=== PATIENT | female | born 1950 | race Two or more races ===

== ENCOUNTER 2024-04-17 00:22 | Inpatient (IN) | payer OTHER, MEDICAID ==
[~2024-04-17] VITALS: Ht 172.7 cm; Wt 54.1 kg
[2024-04-17] MEDS: levETIRAcetam 1000 mg/100ml 100 ML IV ONE (01:25)
[2024-04-17] MEDS: LORazepam 2MG/ML-1ML VIAL IV ONE (01:32)
[2024-04-17] MEDS: ONDANSETRON HCL 4 MG/2 ML VIAL IV ONE (01:32)
[2024-04-17 01:37] LABS: Basophils # (auto) 0 10 ^3/uL (0-0.2); Basophils % (auto) 0.2 % (0.0-2.0); Eosinophils # (auto) 0.2 10 ^3/uL (0-0.8); Eosinophils % (auto) 1.4 % (0.0-7.0); Hematocrit 40.9 % (36.0-46.0); Hemoglobin 13.9 g/dL (12.2-16.2); Lymphocytes % (auto) 7.5 % (10.0-50.0); Mean Corpuscular Hemoglobin 33.2 pg (28.0-32.0); Mean Corpuscular Hgb Conc. 33.9 g/dL (32.0-36.0); Monocytes # (auto) 0.7 10 ^3/uL (0-1.3); Monocytes % (auto) 5.7 % (0.0-12.0); Neutrophils # (auto) 11.1 10 ^3/uL (1.6-8.6); Neutrophils % (auto) 85.2 % (37.0-80.0); Red Blood Cells 4.18 10^6/uL (4.0-5.20); Red Cell Distribution Width 13.9 % (11.8-14.3); White Blood Cell 13.1 10^3/uL (4.4-10.8)
[2024-04-17 02:01] LABS: Alanine Aminotransferase 17 U/L (7-40); Albumin 4.3 g/dL (3.2-4.8); Alkaline Phosphatase 90 U/L (46-116); Anion Gap 12 (5-15); Aspartate Aminotransferase 23 U/L (13-40); BUN/Creatinine Ratio 31.4 (10.0-20.0); Blood Urea Nitrogen 22 mg/dL (9-23); Calcium 9.8 mg/dL (8.7-10.4); Carbon Dioxide 26 mmol/L (20-30); Chloride 106 mmol/L (98-107); Glucose 144 mg/dL (74-106); Potassium 3.8 mmol/L (3.5-5.1); Sodium 144 mmol/L (136-145)
[2024-04-17 02:02] LABS: Bilirubin, Total 0.7 mg/dL (0.2-1.0); Total Protein 6.9 g/dL (5.7-8.2)
[2024-04-17] MEDS: TETANUS-DIPTH-ACEL PERTUSSIS 0.5ML SYR Tdap IM ONE (02:14)
[2024-04-17 02:17] LABS: Urine Bacteria MOD /hpf (None Seen); Urine Blood 1+ /uL (Negative); Urine Clarity Clear (Clear); Urine Color Light-Yellow (Yellow); Urine Hyaline Cast FEW /lpf (0 - 2); Urine Protein, UAD 1+ (Negative); Urine Specific Gravity 1.015 (1.001-1.035); Urine Urobilinogen Normal (Negative); Urine WBC 8 /hpf (0 - 5)
[2024-04-17] MEDS: cefTRIAXone 1GM/50ML D5W 50 ML IV ONE (04:45)
[2024-04-17] MEDS ORDERED: DOCUSATE SOD 100 MG CAP PO PRN (05:15)
[2024-04-17] MEDS ORDERED: LORazepam 2MG/ML-1ML VIAL IV PRN (05:15)
[2024-04-17] MEDS ORDERED: MORPHINE SULFATE INJ 2 MG/ml SYRG IV PRN (06:00)
[2024-04-17] MEDS ORDERED: NITROGLYCERIN 0.4 MG SL TAB SL PRN (06:00)
[2024-04-17] MEDS: SODIUM CHLOR 0.9% PF (SALINE LOCK) 10ML VIAL/SYR IV SCH (06:06)
[2024-04-17 06:28] LABS: Basophils # (auto) 0.1 10 ^3/uL (0-0.2); Basophils % (auto) 0.6 % (0.0-2.0); Eosinophils # (auto) 0.1 10 ^3/uL (0-0.8); Eosinophils % (auto) 0.8 % (0.0-7.0); Hematocrit 41.3 % (36.0-46.0); Hemoglobin 14.1 g/dL (12.2-16.2); Lymphocytes # (auto) 1.3 10 ^3/uL (0.4-5.4); Lymphocytes % (auto) 10.8 % (10.0-50.0); Mean Corpuscular Hemoglobin 33.2 pg (28.0-32.0); Mean Corpuscular Hgb Conc. 34.1 g/dL (32.0-36.0); Mean Corpuscular Volume 97.3 fL (80.0-100.0); Monocytes # (auto) 0.7 10 ^3/uL (0-1.3); Monocytes % (auto) 5.6 % (0.0-12.0); Neutrophils # (auto) 9.8 10 ^3/uL (1.6-8.6); Neutrophils % (auto) 82.2 % (37.0-80.0); Nucleated Red Blood Cells % 0.1 %; Red Blood Cells 4.24 10^6/uL (4.0-5.20); Red Cell Distribution Width 13.3 % (11.8-14.3)
[2024-04-17 06:29] LABS: Alanine Aminotransferase 17 U/L (7-40); Albumin 4.1 g/dL (3.2-4.8); Alkaline Phosphatase 83 U/L (46-116); Anion Gap 6 (5-15); Aspartate Aminotransferase 34 U/L (13-40); BUN/Creatinine Ratio 24.6 (10.0-20.0); Bilirubin, Total 0.8 mg/dL (0.2-1.0); Blood Urea Nitrogen 16 mg/dL (9-23); Calcium 9.3 mg/dL (8.5-10.1); Carbon Dioxide 24 mmol/L (20-30); Chloride 109 mmol/L (98-107); Glucose 133 mg/dL (74-106); Potassium 3.7 mmol/L (3.5-5.1); Sodium 139 mmol/L (136-145); Total Protein 6.7 g/dL (5.7-8.2)
[2024-04-17] MEDS: FAMOTIDINE (10MG/ML) 2ML VL IV SCH (09:17)
[2024-04-17] MEDS: ASPirin 81 mg TAB PO SCH (09:18)
[2024-04-17] MEDS: HYDROcodone-ACET 5/325MG TAB PO PRN (09:20)
[2024-04-17] MEDS: levETIRAcetam 1000 mg/100ml 100 ML IV SCH (09:22)
[2024-04-17 12:51] VITALS: BP 117/70; PULSE 89; RESP 18; TEMP 97.8; O2SAT 93
[2024-04-17] MEDS: NICOTINE 14 MG/24HR TOPICAL PATCH TD ONE (13:45)
[2024-04-17] MEDS: LORazepam 2MG/ML-1ML VIAL IV PRN (15:00)
[2024-04-17 16:00] VITALS: BP 108/69; PULSE 96; RESP 18; TEMP 97.8; O2SAT 93
[2024-04-17 20:00] VITALS: PULSE 99
[2024-04-17 21:00] VITALS: BP 109/68; PULSE 94; RESP 18; TEMP 97.6; O2SAT 94
[2024-04-17] MEDS: ATORVASTATIN 20 MG TAB PO SCH (21:38)
[2024-04-17] MEDS: ACETAMINOPHEN 325 MG TAB PO PRN (21:38)
[2024-04-18] VITALS (9 sets, daily range): BP systolic 94–110; BP diastolic 52–72; PULSE 76–103; RESP 14–20; TEMP 97.6–98.3; O2SAT 93–95
[2024-04-18] MEDS: cefTRIAXone 1GM/50ML D5W 50 ML IV SCH (05:23)
[2024-04-18 06:29] LABS: Basophils # (auto) 0 10 ^3/uL (0-0.2); Basophils % (auto) 0.4 % (0.0-2.0); Eosinophils # (auto) 0.3 10 ^3/uL (0-0.8); Eosinophils % (auto) 3.8 % (0.0-7.0); Lymphocytes # (auto) 1.4 10 ^3/uL (0.4-5.4); Lymphocytes % (auto) 18.2 % (10.0-50.0); Mean Corpuscular Hemoglobin 33.7 pg (28.0-32.0); Mean Corpuscular Hgb Conc. 34.2 g/dL (32.0-36.0); Mean Corpuscular Volume 98.5 fL (80.0-100.0); Monocytes # (auto) 0.6 10 ^3/uL (0-1.3); Monocytes % (auto) 7.3 % (0.0-12.0); Neutrophils # (auto) 5.4 10 ^3/uL (1.6-8.6); Neutrophils % (auto) 70.3 % (37.0-80.0); Red Blood Cells 3.86 10^6/uL (4.0-5.20); Red Cell Distribution Width 13.3 % (11.8-14.3); White Blood Cell 7.7 10^3/uL (4.4-10.8)
[2024-04-18 06:51] LABS: Alanine Aminotransferase 14 U/L (7-40); Alkaline Phosphatase 78 U/L (46-116); Anion Gap 6 (5-15); Aspartate Aminotransferase 26 U/L (13-40); BUN/Creatinine Ratio 32.4 (10.0-20.0); Bilirubin, Total 0.8 mg/dL (0.2-1.0); Blood Urea Nitrogen 24 mg/dL (9-23); Calcium 9.4 mg/dL (8.5-10.1); Carbon Dioxide 25 mmol/L (20-30); Chloride 109 mmol/L (98-107); Glucose 110 mg/dL (74-106); Potassium 3.7 mmol/L (3.5-5.1); Sodium 140 mmol/L (136-145); Total Protein 6.1 g/dL (5.7-8.2)
[2024-04-18 09:29] LABS: Amphetamine Screen, Urine Neg (NEGATIVE); Barbiturate Scree,Urine Neg (NEGATIVE); Benzodiazephine Screen, Urine Neg (NEGATIVE); Cocaine Screen, Urine Neg (NEGATIVE); Opiate Scree,Urine Pos (NEGATIVE)
[2024-04-18 09:30] LABS: Cannabinoid Screen, Urine Neg (NEGATIVE); Phencyclidine Screen, Urine Neg (NEGATIVE)
[2024-04-18] MEDS: NICOTINE 14 MG/24HR TOPICAL PATCH TD SCH (09:55)
[2024-04-18] MEDS ORDERED: LISI2.5T47 PO (12:50)
[2024-04-18] MEDS ORDERED: ASCO500T11 PO (12:50)
[2024-04-18] MEDS ORDERED: OMEP20TA PO (12:50)
[2024-04-18] MEDS ORDERED: NITR0.4S29 SL (12:50)
[2024-04-18] MEDS ORDERED: SENN-58 PO (12:50)
[2024-04-18] MEDS ORDERED: DIPH-751 PO (12:50)
[2024-04-18] MEDS ORDERED: ASPI-498 OR (12:50)
[2024-04-18] MEDS ORDERED: ASPI81TA28 PO (12:50)
[2024-04-18] MEDS ORDERED: LEVO500T91 PO (12:50)
[2024-04-18] MEDS ORDERED: HYDR-4798 PO (12:50)
[2024-04-18] MEDS ORDERED: ATOR10TA52 PO (12:50)
[2024-04-18] MEDS ORDERED: LORA2TAB89 PO (12:59)
[2024-04-18] MEDS: ONDANSETRON HCL 4 MG/2 ML VIAL IV PRN (14:20)
[2024-04-18] MEDS ORDERED: LORazepam 2MG/ML-1ML VIAL IV PRN (20:30)
[2024-04-18 20:53] LABS: LDL Cholesterol 81 mg/dL (< 100); Triglycerides 104 mg/dL (< 150)
[2024-04-18 20:55] LABS: Cholesterol 160 mg/dL (< 200); HDL Cholesterol 67 mg/dL (40-59)
[2024-04-18] MEDS: FOLIC ACID 1 MG in D5W 5% 50 ML INJ SCH (21:30)
[2024-04-18] MEDS: THIAMINE 100mg/ml INJ (200mg/2ml VIAL) IV SCH (22:10)
[2024-04-18] MEDS: LORazepam 0.5 MG TAB PO PRN (22:42)
[2024-04-19] VITALS (8 sets, daily range): BP systolic 102–130; BP diastolic 58–81; PULSE 72–99; RESP 16–18; TEMP 97.7–98.1; O2SAT 92–98
[2024-04-19 07:13] LABS: Anion Gap 6 (5-15); Carbon Dioxide 24 mmol/L (20-30); Chloride 109 mmol/L (98-107); Potassium 4.1 mmol/L (3.5-5.1); Sodium 139 mmol/L (136-145)
[2024-04-19 07:14] LABS: Calcium 9.4 mg/dL (8.7-10.4)
[2024-04-19 07:19] LABS: BUN/Creatinine Ratio 34.4 (10.0-20.0); Blood Urea Nitrogen 22 mg/dL (9-23); Glucose 108 mg/dL (74-106)
[2024-04-20 05:00] VITALS: BP 132/74; PULSE 78; RESP 19; TEMP 97.7; O2SAT 93
[2024-04-20 08:00] VITALS: PULSE 72
[2024-04-20 08:15] VITALS: PULSE 88; RESP 20; O2SAT 96
[2024-04-20 09:00] VITALS: BP 138/81; PULSE 88; RESP 20; TEMP 97.7; O2SAT 96
[2024-04-20 13:00] VITALS: BP 140/86; PULSE 93; RESP 20; TEMP 97.5; O2SAT 95
== END 2024-04-20 17:07 | disposition hospice, home (50) | DRG 872 ==
LOC: ER 00:22 → EDBD 00:22 → EAST 05:55 → TELE 06:54 → TELE-EAST 12:30 → EAST 04-20 14:08
PROVIDERS: ADMIT Nurse Practitioner Family; ATTEND Internal Medicine
DX: A41.9 Sepsis, unspecified organism (principal); N39.0 Urinary tract infection, site not specified; Z68.1 Body mass index [BMI] 19.9 or less, adult; F10.139 Alcohol abuse with withdrawal, unspecified; G40.509 Epileptic seizures related to external causes, not intractable, without status epilepticus; E44.0 Moderate protein-calorie malnutrition; F17.200 Nicotine dependence, unspecified, uncomplicated; F41.9 Anxiety disorder, unspecified; I10 Essential (primary) hypertension; E78.00 Pure hypercholesterolemia, unspecified; Y90.9 Presence of alcohol in blood, level not specified; S00.81XA Abrasion of other part of head, initial encounter; W17.89XA Other fall from one level to another, initial encounter; Y93.89 Activity, other specified; Y92.89 Other specified places as the place of occurrence of the external cause; Y99.8 Other external cause status; Z86.73 Personal history of transient ischemic attack (TIA), and cerebral infarction without residual deficits; Z79.82 Long term (current) use of aspirin; Z79.899 Other long term (current) drug therapy; Z71.41 Alcohol abuse counseling and surveillance of alcoholic
CPT/HCPCS: 36415; 70450; 70486; 72125; 73130; 73560; 80048; 80053; 80061; 80307; 81001; 83880; 84484; 85025; 87086; 90471; 90715; 93005; 93306; 93886; 96365; 96367; 96375; 97110; 97116; 97163; 97530; G0378; J2405; J3490; J7060

== ENCOUNTER 2024-10-08 20:55 | Inpatient (IN) | payer OTHER, MEDICAID ==
[~2024-10-08] VITALS: Ht 162.6 cm; Wt 62.0 kg
[~2024-10-08 20:55] MED LIST: ASCO500T11 PO; ASPI-498 OR; ASPI81TA28 PO; ATOR10TA52 PO; DIPH-751 PO; HYDR-4798 PO; LEVO500T91 PO; LISI2.5T47 PO; LORA2TAB89 PO; NITR0.4S29 SL; OMEP20TA PO; SENN-58 PO
--- NOTE | 2024-10-08 21:34 | ED.PDOC ---
Altered Mental Status HPI Comments This 74-year-old female is a resident of an assisted living facility presents to the emergency room after having a witnessed grand mal seizure. Per report, the patient has been off her medications 1 day as a ran out. The caregivers were unable to provide a list of medications and, we are unsure what medication she is supposed to take. At baseline, the patient is A&O x1. She is unable to write any additional information. He has no other obvious signs or symptoms. No other palliative provocative factors. Modifying factor. Denies pain. Chief Complaint: ALOC Time Seen by MD: 21:34 Allergies: Coded Allergies: Naproxen (Verified Allergy, Unknown, 04/19/24) Home Meds Reported Medications Lorazepam (Ativan) 2 Mg Tab, 1 TAB PO QPM for ANXIETY, #30 TAB 04/18/24 Nitroglycerin (NTROSTAT SUBLINGUAL) 0.4 Mg Sl, 0.4 MG SL PRN, TAB *MAY REPEAT EVERY 5 MINUTES X 3 TOTAL IF NO RELIEF, INITIATE ANALGESIC THERAPY. NOTIFY PHYSICIAN *Do not crush. 04/18/24 Levofloxacin Hemihydrate (LEVOFLOXACIN) 500 Mg Tab, 1 TAB PO DAILY, #7 TAB 04/18/24 Ascorbic Acid (VITAMIN C TABLET) 500 Mg Tb, 1 TAB PO DAILY for SUPPLEMENT, #30 TAB 3 Refills 04/18/24 Aspirin (Aspirin Ec) 81 Mg Tab, 81 MG PO DAILY, TAB 04/18/24 Aspirin (ASPIRIN 81) 81 Mg Tab, 81 MG OR, TAB 04/18/24 Senna (Senokot) 8.6 Mg Tab, 1 TAB PO BID for CONSTIPATION, #40 TAB 04/18/24 Atorvastatin Calcium (ATORVASTATIN CALCIUM) 10 Mg Tab, 1 TAB PO DAILY, #30 TAB 5 Refills 04/18/24 Lisinopril (Lisinopril) 2.5 Mg Tab, 1 TAB PO DAILY for HTN, #30 TAB 5 Refills 04/18/24 Omeprazole (Gnp Omeprazole) 20 Mg Tab, 1 TAB PO DAILY, #90 TAB 1 Refill 04/18/24 Hydrocodone-Acetaminophen (Hydrocodone Bitartrate/AC 10-325 mg) 1 Tab Tab, 1 TAB PO for PAIN, TAB 04/18/24 Diphenhydramine Hcl (Banophen) 25 Mg Cap, 25 MG PO BID for ITCHING, CAP 04/18/24 Mode of Arrival: EMS Past Medical History PAST MEDICAL HISTORY: High Lipids, HTN, Seizures Surgical History: Denies all surgeries OIL FIELD PUMPER History: No Pertinent OIL FIELD PUMPER History Family History Family History: Unknown Social History Smoker: Non-Smoker Alcohol: Denies ETOH Use Drugs: Denies Drug Use Constitutional: reports: weakness EENTM: denies: eye redness, nose pain, throat swelling Respiratory: denies: cough, shortness of breath Cardiovascular: denies: chest pain, dizzy spells Gastrointestinal: reports: abdominal pain; denies: diarrhea Genitourinary: reports: burning, dysuria Neurological: reports: pre-existing deficit Musculoskeletal: denies: muscle stiffness Psychiatric: reports: others (Dementia) Unable to Obtain due to: Altered Mental Status, Dementia Physical Exam General Appearance: Mild Distress HEENT: Normal ENT Inspection Neck: Full Range of Motion Respiratory: Lungs Clear, No Accessory Muscle Use, No Respiratory Distress Cardiovascular: Regular Rate/Rhythm Breast Exam: Deferred Gastrointestinal: Other (Mild suprapubic tenderness palpation. No rebound or guarding. Normoactive bowel sounds throughout.) Genitalia: Deferred Pelvic: Deferred Rectal: Deferred Extremities: No calf tenderness, No pedal edema Neurologic: companion caregiver II-XII nml as Tested, Disoriented, Normal Mood Cerebellar Function: NOT DONE Reflexes: NOT DONE Skin: None Lymphatic: NOT DONE Was a procedure done? Was a procedure done?: No Differential Diagnosis (ALOC) Differential Diagnosis: Dehydration, Hypoglycemia, DKA, Encephalopathy, Meningitis, Sepsis, Hypoxemia, Seizure, Closed Head Injury, CVA, Drug Overdose, ETOH Intoxication X-Ray, Labs, Meds, VS Vital Signs Date Time Temp Pulse Resp B/P (MAP) Pulse Ox O2 Delivery O2 Flow Rate FiO2 10/08/24 20:58 97.8 102 20 133/100 (111) 96 Lab Test 10/08/24 22:01 Range/Units White Blood Count 9.6 4.4-10.8 10^3/uL Red Blood Count 4.34 4.0-5.20 10^6/uL Hemoglobin 14.4 12.2-16.2 g/dL Hematocrit 43.1 36.0-46.0 % Mean Corpuscular Volume 99.2 80.0-100.0 fL Mean Corpuscular Hemoglobin 33.3 H 28.0-32.0 pg Mean Corpuscular Hemoglobin Concent 33.5 32.0-36.0 g/dL Red Cell Distribution Width 14.2 11.8-14.3 % Platelet Count 245 140-450 10^3/uL Mean Platelet Volume 8.0 6.9-10.8 fL Neutrophils (%) (Auto) 89.7 H 37.0-80.0 % Lymphocytes (%) (Auto) 5.4 L 10.0-50.0 % Monocytes (%) (Auto) 4.5 0.0-12.0 % Eosinophils (%) (Auto) 0.2 0.0-7.0 % Basophils (%) (Auto) 0.2 0.0-2.0 % Neutrophils # (Auto) 8.6 1.6-8.6 10 ^3/uL Lymphocytes # (Auto) 0.5 0.4-5.4 10 ^3/uL Monocytes # (Auto) 0.4 0-1.3 10 ^3/uL Eosinophils # (Auto) 0 0-0.8 10 ^3/uL Basophils # (Auto) 0 0-0.2 10 ^3/uL Nucleated Red Blood Cells 0.0 % Prothrombin Time Pending Prothrombin Time INR Pending Activated Partial Thromboplast Time Pending Sodium Level Pending Potassium Level Pending Chloride Level Pending Carbon Dioxide Level Pending Anion Gap Pending Blood Urea Nitrogen Pending Creatinine Pending Glomerular Filtration Rate Calc Pending BUN/Creatinine Ratio Pending Serum Glucose Pending Lactic Acid Level Pending Calcium Level Pending Total Bilirubin Pending Aspartate Amino Transferase (AST) Pending Alanine Aminotransferase (ALT) Pending Alkaline Phosphatase Pending Troponin I High Sensitivity Pending Total Protein Pending Albumin Pending Phenytoin (Dilantin) Level Pending Plasma/Serum Blood Alcohol Pending X-Ray, Labs, Meds, VS Comment This 74-year-old female who is A&O x1 at baseline presents secondary to a witnessed grand mal seizure after being off received medication times 24 hours. Per report, the patient also has foul smelling urine and a suprapubic tenderness palpation. At the time of shift change, the patient's labs and not result. Patient was signed out for final disposition. Time of 1ST Reevaluation: 22:24 Reevaluation 1ST: Unchanged Patient Education/Counseling: Diagnosis, Treatment, Prognosis Family Education/Counseling: No Family Present Departure 1 Departure Time of Disposition: 22:23 Impression: Primary Impression: Generalized weakness Additional Impressions: Altered mental status Metabolic encephalopathy Disposition: ADMITTED INPATIENT Condition: Serious Critical Care Note Critical Care Time?: No Stability Stability form required: No Heart Score Heart Score: Heart Score Response (Comments) Value History N/A 0 EKG N/A 0 Age N/A 0 Risk Factors N/A 0 Troponin N/A 0 Total 0 VIANCA RANDOLPH MD Oct 08, 2024 21:34
[2024-10-08 22:20] LABS: Basophils # (auto) 0 10 ^3/uL (0-0.2); Basophils % (auto) 0.2 % (0.0-2.0); Eosinophils # (auto) 0 10 ^3/uL (0-0.8); Eosinophils % (auto) 0.2 % (0.0-7.0); Hematocrit 43.1 % (36.0-46.0); Hemoglobin 14.4 g/dL (12.2-16.2); Lymphocytes # (auto) 0.5 10 ^3/uL (0.4-5.4); Lymphocytes % (auto) 5.4 % (10.0-50.0); Mean Corpuscular Hemoglobin 33.3 pg (28.0-32.0); Mean Corpuscular Hgb Conc. 33.5 g/dL (32.0-36.0); Mean Corpuscular Volume 99.2 fL (80.0-100.0); Monocytes # (auto) 0.4 10 ^3/uL (0-1.3); Monocytes % (auto) 4.5 % (0.0-12.0); Neutrophils # (auto) 8.6 10 ^3/uL (1.6-8.6); Neutrophils % (auto) 89.7 % (37.0-80.0); Platelet Count (auto) 245 10^3/uL (140-450); Red Blood Cells 4.34 10^6/uL (4.0-5.20); Red Cell Distribution Width 14.2 % (11.8-14.3); White Blood Cell 9.6 10^3/uL (4.4-10.8)
[2024-10-08 22:33] LABS: Alanine Aminotransferase 14 U/L (7-40); Albumin 4.7 g/dL (3.2-4.8); Alkaline Phosphatase 93 U/L (46-116); Anion Gap 13 (5-15); Aspartate Aminotransferase 18 U/L (13-40); BUN/Creatinine Ratio 23.1 (10.0-20.0); Blood Urea Nitrogen 18 mg/dL (9-23); Calcium 10.3 mg/dL (8.7-10.4); Carbon Dioxide 24 mmol/L (20-31); Chloride 106 mmol/L (98-107); INR 0.96 (0.9-1.15); Partial Thromboplastin Time < 20.0 SEC (24.5-34.5); Prothrombin Time 10.2 sec (9.3-11.8); Sodium 143 mmol/L (136-145); Total Protein 7.7 g/dL (5.7-8.2)
[2024-10-08 22:45] LABS: Blood Alcohol < 3.0 mg/dL (<10); Glucose 161 mg/dL (74-106); Potassium 3.1 mmol/L (3.5-5.1)
[2024-10-08 22:53] LABS: Lactic Acid w/Reflex 2.2 mmol/L (0.4-2.0)
--- NOTE | 2024-10-08 23:17 | DVH ---
EXAM: CT HEAD WITHOUT CONTRAST INDICATION: altered TECHNIQUE: CT of the head without intravenous contrast. Radiation Dose : 1. Head: CT Dose: CTDI volume is 58 mGy. Dose-length product is 3755 mGy*cm The dose indicators for CT are the volume Computed Tomography (CT) Dose Index (CTDIvol) and the Dose Length Product (DLP), and are measured in units of mGy and mGy-cm, respectively. These indicators are not patient dose, but values generated from the CT scanner acquisition factors. The report includes radiation exposure data for exposures received during this examination. COMPARISON: CT HEAD WITHOUT CONTRAST on DOS: 04/17/24, CT CERVICAL WITHOUT CONTRAST on DOS: 04/17/24 FINDINGS: There is no evidence of acute intracranial hemorrhage, extra-axial collection, mass effect, midline s hift, herniation or hydrocephalus. The ventricles, sulci and cisterns are age appropriate. The srivastava-white differentiation is intact. Patchy periventricular and subcortical white matter hypoattenuation is nonspecific but may be related to small vessel ischemic disease. The visualized paranasal sinuses and mastoid air cells are clear. The surrounding soft tissues and osseous structures are unremarkable. IMPRESSION: 1. No acute intracranial abnormality. Radiation optimization: All CT scans at this facility use at least one of these dose optimization george hniques: automated exposure control mA and/or kV adjustment per patient size (includes targeted exam s where dose is matched to clinical indication) or iterative reconstruction.
[2024-10-09] VITALS (8 sets, daily range): BP systolic 106–137; BP diastolic 60–83; PULSE 65–107; RESP 18–20; TEMP 97.1–98.8; O2SAT 92–97
[2024-10-09] MEDS ORDERED: ACETAMINOPHEN 325 MG TAB PO PRN (00:15)
[2024-10-09] MEDS ORDERED: NITROGLYCERIN 0.4 MG SL TAB SL PRN (00:15)
[2024-10-09] MEDS ORDERED: MORPHINE SULFATE INJ 2 MG/ml SYRG IV PRN (00:15)
[2024-10-09] MEDS ORDERED: DOCUSATE SOD 100 MG CAP PO PRN (00:15)
[2024-10-09] MEDS: POTASSIUM CHL 20 Meq TABLET PO ONE (00:40)
[2024-10-09] MEDS: levETIRAcetam 1000 mg/100ml 100 ML IV ONE (00:40)
[2024-10-09] MEDS: LORazepam 2MG/ML-1ML VIAL IV PRN ×2 (00:41→20:53)
[2024-10-09] MEDS: SODIUM CHLORIDE 0.9% 1,000 ML IV SCH (00:45)
[2024-10-09] MEDS ORDERED: hydrALAZINE HCL 20 MG/ML VL IV PRN (00:45)
--- NOTE | 2024-10-09 00:50 | DVHHPRES ---
History of Present Illness Resident Creating Document: NIVIA FORD History of Present Illness Patient is 74 years old female with past medical history of seizure, history of recurrent seizure, history of alcoholism, history of stroke, anxiety, hypertension, hyperlipidemia was brought in by the EMS due to seizure. Patient is brought to the ER after having weakness, seizure. Casting Machine Operator Helper spoke to patient's caregiver Ezio, . As per Ezio patient had seizure 1 time lasted for 2-3 minutes. Patient had post seizure vomiting. As per Mr. Holguin patient also had a fall few days before and hit her hip. Patient has been off of her medication estrogen out. As per caregiver patient does not have any neurologist and caregiver could not mentioned the name of the PCP. Patient is a poor historian, details of the seizure activity could not be obtained. Initial lab workup revealed lactic acid 2.2, hypokalemia potassium 3.1, calcium 10.3, other initial blood workup was within normal limit. CT scan of the head showed no acute intracranial hemorrhage or infarction. CT head was negative for acute intracranial pathology. Patient was last admitted in [facility] on May due to recurrent fall with presumptive seizure as a cause. Echo on 04/19/2024 revealed LVEF 65% new Past Medical History seizure, history of recurrent seizure, history of alcoholism, history of stroke, anxiety, hypertension, hyperlipidemia Past Surgical History History left hip surgery in 2019. Past Social History Patient occasional alcoholic, smoker, no drug abuse, lives with caregiver Ezio Review of Systems Review of Systems Allergy- naproxen Patient was seen today at the bedside. Cardiovascular- deny acute chest pain or shortness of breath or cough or palpitation Respiratory- denies cough or short of breath or wheezing Gastrointestinal- denies any rectal bleeding, Musculoskeletal-denies acute joint swelling or tenderness or redness Neurological- denies acute dysarthria, dysphagia, change in vision Skin- denies acute rash or purpura Allergies: Coded Allergies: Naproxen (Verified Allergy, Unknown, 04/19/24) Medications Current Medications Medications Dose Ordered Sig/Carlos Route Start Time Stop Time Status Last Admin Dose Admin Docusate Sodium 100 mg BIDPRN PRN PO 10/09/24 00:15 Acetaminophen 650 mg Q6HP PRN PO 10/09/24 00:15 Morphine Sulfate 2 mg Q4HPRN PRN IV 10/09/24 00:15 Nitroglycerin 0.4 mg Q5MINP PRN SL 10/09/24 00:15 Morphine Sulfate 2 mg Q30M PRN IV 10/09/24 00:15 Lorazepam 1 mg Q5MINP PRN IV 10/09/24 00:15 Exam Vital Signs Vital Signs Date Time Temp Pulse Resp B/P (MAP) Pulse Ox O2 Delivery O2 Flow Rate FiO2 10/08/24 21:09 100 10/08/24 20:58 97.8 20 133/100 (111) 96 Exam General examination- patient is hard of hearing, awake, not in acute distress, mild confusion HEENT- PEERLA, no acute nasal discharge Cardiovascular- S1-S2 audible, rate and rhythm regular, no murmur Respiratory- CTAB, no wheeze or rhonchi Gastrointestinal-nontender, bowel sound+. Nondistended Musculoskeletal-no acute joint swelling or tenderness or redness# Lower extremity- no leg edema Neurological- cranial nerves intact, no acute dysarthria or dysphagia Skin-fragile skin Labs/Xrays Labs Test 10/09/24 00:01 10/08/24 22:01 Range/Units White Blood Count 9.6 4.4-10.8 10^3/uL Red Blood Count 4.34 4.0-5.20 10^6/uL Hemoglobin 14.4 12.2-16.2 g/dL Hematocrit 43.1 36.0-46.0 % Mean Corpuscular Volume 99.2 80.0-100.0 fL Mean Corpuscular Hemoglobin 33.3 H 28.0-32.0 pg Mean Corpuscular Hemoglobin Concent 33.5 32.0-36.0 g/dL Red Cell Distribution Width 14.2 11.8-14.3 % Platelet Count 245 140-450 10^3/uL Mean Platelet Volume 8.0 6.9-10.8 fL Neutrophils (%) (Auto) 89.7 H 37.0-80.0 % Lymphocytes (%) (Auto) 5.4 L 10.0-50.0 % Monocytes (%) (Auto) 4.5 0.0-12.0 % Eosinophils (%) (Auto) 0.2 0.0-7.0 % Basophils (%) (Auto) 0.2 0.0-2.0 % Neutrophils # (Auto) 8.6 1.6-8.6 10 ^3/uL Lymphocytes # (Auto) 0.5 0.4-5.4 10 ^3/uL Monocytes # (Auto) 0.4 0-1.3 10 ^3/uL Eosinophils # (Auto) 0 0-0.8 10 ^3/uL Basophils # (Auto) 0 0-0.2 10 ^3/uL Nucleated Red Blood Cells 0.0 % Prothrombin Time 10.2 9.3-11.8 sec Prothrombin Time INR 0.96 0.9-1.15 Activated Partial Thromboplast Time < 20.0 L 24.5-34.5 SEC Sodium Level 143 136-145 mmol/L Potassium Level 3.1 L 3.5-5.1 mmol/L Chloride Level 106 98-107 mmol/L Carbon Dioxide Level 24 20-31 mmol/L Anion Gap 13 5-15 Blood Urea Nitrogen 18 9-23 mg/dL Creatinine 0.78 0.550-1.02 mg/dL Glomerular Filtration Rate Calc 79 >90 mL/min BUN/Creatinine Ratio 23.1 H 10.0-20.0 Serum Glucose 161 H 74-106 mg/dL Calcium Level 10.3 8.7-10.4 mg/dL Total Bilirubin 1.0 0.2-1.0 mg/dL Aspartate Amino Transferase (AST) 18 13-40 U/L Alanine Aminotransferase (ALT) 14 7-40 U/L Alkaline Phosphatase 93 46-116 U/L Total Protein 7.7 5.7-8.2 g/dL Albumin 4.7 3.2-4.8 g/dL Phenytoin (Dilantin) Level < 2.0 L 10-20 ug/mL Plasma/Serum Blood Alcohol < 3.0 <10 mg/dL Assessment/Plan Assessment/Plan # grand mal seizure -CT head no acute intracranial pathology -seizure precaution -continue Ativan p.r.n. as prescribed -continue Keppra as prescribed # suspected metabolic encephalopathy -patient with mild confusion -continue current management # lactic acidosis -continue IV fluid as prescribed # hypertension -continue IV hydralazine 10 mg q.6h p.r.n. -monitor blood pressure #hyperlipidemia -continue atorvastatin 20 mg q.h.s. # history recurrent fall -fall precaution # anxiety -continue Ativan as prescribed Goals of care/advance care planning; FULL CODE; discussed with the patient >15 minutes PUD prophylaxis: DVT prophylaxis: Lovenox Plan discussed with Dr. Berumen, nursing staff, patient Total time spent on patient evaluation, chart review, assessment and plan, discussion discussion >30 minutes Plan discussed with: Patient Plan discussed with: Patient, Other (RN) My Orders Orders - NIVIA FORD Procedure Category Date Status Time Admit ADMIT 10/09/24 Transmitted 00:10 Code Status CODE 10/09/24 Transmitted 00:10 Docusate Sodium PHA 10/09/24 In Process Capsule (Colace 00:15 Fall Risk Precautions MALIKA 10/09/[address] 00:10 Complete Blood Count LAB 10/10/24 Verified 04:00 Comprehensive LAB 10/10/24 Verified Metabolic Panel 04:00 Npo (Nothing By DIET 10/09/24 Transmitted Mouth) Diet Breakfast Acetaminophen Tablet PHA 10/09/24 In Process (Tylenol Tablet) 00:15 Morphine Sulfate PHA 10/09/24 In Process Injection 00:15 Nitroglycerin PHA 10/09/24 In Process Sublingual (Ntrostat 00:15 Morphine Sulfate PHA 10/09/24 In Process Injection 00:15 Oxygen By Nasal RT 10/09/24 Transmitted Cannula 00:10 Stat Ekg For Chest [facility] 10/09/24 In Process Pain 00:10 Notify Md Of Changes [facility] 10/09/24 In Process From Base 00:10 Yacht Rigger For [facility] 10/09/24 In Process 24 Hours 00:10 Emergency Dysrhythmia [facility] 10/09/24 In Process Protocol 00:10 Rhythm Strips Once [facility] 10/09/24 In Process Every Shift 00:10 Creatine Kinase LAB 10/09/24 Logged 00:12 Magnesium LAB 10/09/24 Logged 00:12 Thyroid Stimulating LAB 10/09/24 Logged Hormone 00:12 Lorazepam 2mg/Ml Inj PHA 10/09/24 In Process (Ativan Inj) 00:15 Date of Service: Oct 09, 2024 Billing Provider: FERNANDA BERUMEN MD Common Visit Codes: [id number] INP/OBS CARE (HIGH) Secondary Visit Codes: [id number] CARE PLAN 30 MINUTES NIVIA FORD Oct 09, 2024 00:50 FERNANDA BERUMEN MD Oct 09, 2024 19:47
--- NOTE | 2024-10-09 01:54 | DVH ---
EXAM: XY CHEST XRAY 1 VIEW CLINICAL HISTORY: Rule out pneumonia, chest pain TECHNIQUE: Single AP view of the chest WID: COMPARISON: None FINDINGS: Lines and tubes: None Chest: The heart size and pulmonary vasculature is within normal limits. Calcified plaque projects over the aortic arch No pleural effusion or pneumothorax. Linear bibasilar opacities. The osseous structures are grossly intact. Multilevel thoracic spondylosis IMPRESSION: Linear bibasilar opacities likely scarring or atelectasis, pneumonia is a less likely consideration
[2024-10-09] MEDS: MORPHINE SULFATE INJ 2 MG/ml SYRG IV PRN (05:24)
[2024-10-09] MEDS: ENOXAPARIN SOD 40 MG/0.4 ML SYRINGE SC ONE (05:32)
[2024-10-09] MEDS: ONDANSETRON HCL 4 MG/2 ML VIAL IV PRN ×2 (06:07→13:44)
--- NOTE | 2024-10-09 07:00 | ECG ---
[facility] Test Date: 2024-10-08 Test Time: 21:09:34 Pat Name: KOKI SOLANO Department: er Room: 0296T Gender: F Senior Software Manager: tanya : 1950 Requested By: VIANCA RANDOLPH Order Number: [id number] Reading MD: Measurements Intervals [place] Rate: 100 P: 74 KS: 179 QRS: 75 QRSD: 93 T: 4 QT: 366 QTc: 473 Interpretive Statements Sinus tachycardia Borderline ST depression, diffuse leads Please click the below link to view image of tracing.
[2024-10-09] MEDS: POTASSIUM CHL 20MEQ/100ML 100 ML IV SCH (09:30)
[2024-10-09] MEDS ORDERED: PATIENTS OWN MEDICATION (Lisinopril 1 TAB) PO SCH (10:00)
[2024-10-09] MEDS: levETIRAcetam 500 mg/100ml 100 ML IV SCH (10:00)
[2024-10-09] MEDS: ASPirin-EC 81 mg tab PO SCH (10:07)
[2024-10-09] MEDS: ATORVASTATIN 20 MG TAB PO SCH (10:09)
[2024-10-09 10:59] LABS: Albumin 4.1 g/dL (3.2-4.8); Alkaline Phosphatase 77 U/L (46-116); Anion Gap 8 (5-15); Aspartate Aminotransferase 17 U/L (13-40); BUN/Creatinine Ratio 23.5 (10.0-20.0); Blood Urea Nitrogen 16 mg/dL (9-23); Calcium 9.5 mg/dL (8.7-10.4); Carbon Dioxide 25 mmol/L (20-31); Glucose 103 mg/dL (74-106); Potassium 3.7 mmol/L (3.5-5.1); Sodium 142 mmol/L (136-145)
[2024-10-09 11:00] LABS: Total Protein 6.5 g/dL (5.7-8.2)
[2024-10-09 11:05] LABS: Alanine Aminotransferase 9 U/L (7-40); Bilirubin, Total 1.6 mg/dL (0.2-1.0); Chloride 109 mmol/L (98-107); Creatine Kinase IFCC 197 U/L (34-145)
[2024-10-09 11:06] LABS: Basophils # (auto) 0 10 ^3/uL (0-0.2); Basophils % (auto) 0.3 % (0.0-2.0); Eosinophils # (auto) 0.1 10 ^3/uL (0-0.8); Hemoglobin 12.1 g/dL (12.2-16.2); Lymphocytes # (auto) 0.9 10 ^3/uL (0.4-5.4); Lymphocytes % (auto) 11.5 % (10.0-50.0); Mean Corpuscular Hemoglobin 33.4 pg (28.0-32.0); Mean Corpuscular Hgb Conc. 33.7 g/dL (32.0-36.0); Monocytes # (auto) 0.8 10 ^3/uL (0-1.3); Monocytes % (auto) 9.2 % (0.0-12.0); Neutrophils # (auto) 6.5 10 ^3/uL (1.6-8.6); Nucleated Red Blood Cells % 0.1 %; Platelet Count (auto) 226 10^3/uL (140-450); Red Blood Cells 3.64 10^6/uL (4.0-5.20); Red Cell Distribution Width 13.6 % (11.8-14.3); White Blood Cell 8.3 10^3/uL (4.4-10.8)
[2024-10-09] MEDS: LORazepam 0.5 MG TAB PO PRN (11:50)
--- NOTE | 2024-10-09 14:16 | DVH ---
CLINICAL INDICATION: h/o fall TECHNIQUE: XY R HIP COMPLETE XRAY, 4 views Comparison: None FINDINGS/IMPRESSION: There is no evidence of acute fracture or dislocation. RIght femur surgical hardware The alignment is anatomical. There is no radiopaque foreign body.
[2024-10-09] MEDS: PANTOPRAZOLE 40 MG/10 ML VIAL INJ IV ONE (15:00)
--- NOTE | 2024-10-09 15:02 | DVHPNRES ---
Progress Note Date Seen: Oct 09, 2024 Resident Creating Document: SHIVANI PECK RESIDENT Medical Necessity Reason Pt with a Central, PICC or Fol: No Subjective Review of Systems Olivia Heaton is a 74 years old female with past medical history of seizure, history of recurrent seizure, history of alcoholism, history of stroke, anxiety, hypertension, hyperlipidemia was brought in by the EMS due to seizure. Patient is poor history, caregiver gave the information, per caregiver patient ran out of her medications 2-3 days back, yesterday she developed 1 episode seizures which lasts for 2-3 minutes associated with 1 episode of vomiting after the seizure episode. Patient denies fever, diarrhea, chills, diaphoresis, chest pain, abdominal pain, and other acute associated symptoms. PMH: seizure, history of stroke, anxiety, hypertension, hyperlipidemia PSH: Left hip surgery in 2019 Family history: Reviewed, noncontributory Social history: Patient lives with a caregiver. Occasional alcohol tobacco abuse but no other drug abuse Allergies: Naproxen Patient seen and examined at the bedside. Patient reported improvement in her overall since admission. The patient was mildly anxious, given Ativan. Patient currently on Keppra for seizure, ordered seizure precaution. Currently supportive management and monitoring. Objective vital signs Vital Sign Date Time Temp Pulse Resp B/P (MAP) Pulse Ox O2 Delivery O2 Flow Rate FiO2 10/09/24 09:00 98.8 104 19 137/74 (95) 92 98.8 10/09/24 08:00 Room Air* 0 21 Total Intake and Output 10/08/24 10/08/24 10/09/24 15:00 23:00 07:00 Intake Total 400 ml Balance 400 ml medications Current Medications Medications Dose Ordered Sig/Carlos Route Start Time Stop Time Status Last Admin Dose Admin Docusate Sodium 100 mg BIDPRN PRN PO 10/09/24 00:15 Acetaminophen 650 mg Q6HP PRN PO 10/09/24 00:15 Morphine Sulfate 2 mg Q4HPRN PRN IV 10/09/24 00:15 10/09/24 05:24 2 MG Nitroglycerin 0.4 mg Q5MINP PRN SL 10/09/24 00:15 Morphine Sulfate 2 mg Q30M PRN IV 10/09/24 00:15 Lorazepam 1 mg Q5MINP PRN IV 10/09/24 00:15 10/09/24 00:41 1 MG Aspirin 81 mg DAILY PO 10/09/24 10:00 10/09/24 10:07 81 MG Atorvastatin Calcium 10 mg DAILY PO 10/09/24 10:00 10/09/24 10:09 10 MG Sodium Chloride 1,000 ml @ 100 mls/hr Q10H IV 10/09/24 00:45 10/09/24 00:45 100 MLS/HR Hydralazine HCl 10 mg Q6HP PRN IV 10/09/24 00:45 Levetiracetam 100 ml @ 400 mls/hr BID IV 10/09/24 10:00 10/09/24 10:00 400 MLS/HR Enoxaparin Sodium 40 mg DAILY SC 10/10/24 10:00 Ondansetron HCl 4 mg Q6HPRN PRN IV 10/09/24 06:45 10/09/24 13:44 4 MG Lorazepam 1 mg Q6HP PRN IV 10/09/24 12:45 Pantoprazole Sodium 40 mg DAILY IV 10/10/24 10:00 Examination Pt is lying on bed General Appearance: Alert, Oriented X3, Cooperative, Not in acute distress HEENT: Atraumatic, Mucous membranes moist/pink Respiratory: Clear to auscultation, Normal air movement, No added sounds Cardiovascular: Regular rate, Normal S1, Normal S2, No murmurs Abdominal: Active bowel sounds, Soft, no distention, no tenderness Extremities: No edema, Normal pulses, No tenderness/swelling Skin: No Significant rash, except past surgical scars Neuro: generalized weakness Psych/Mental Status: Mental status NL, Mood NL Nurse was there as fer during examination laboratory and microbiology Laboratory Tests 10/09/24 10:05 Test 10/09/24 10:05 Range/Units Serum Glucose 103 74-106 mg/dL Labs and/or images reviewed: Labs reviewed by me, Image(s) reviewed by me Problem List/Assessment/Plan Problem List/Assessment/Plan # GCTC /grand mal seizure - CT head no acute intracranial pathology - seizure precaution - continue Ativan p.r.n. as prescribed - continue Keppra as prescribed - Supportive treatment and monitor continuously # ? Acute metabolic encephalopathy -patient with mild confusion -continue current management # lactic acidosis -continue IV fluid as prescribed # hypertension -continue IV hydralazine 10 mg q.6h p.r.n. -monitor blood pressure #hyperlipidemia -continue atorvastatin 20 mg q.h.s. # history recurrent fall -fall precaution # anxiety -continue Ativan as prescribed Lovenox for now Protonix Cradiac diet Reconsiled home Goals of care discussed with the patient for more than 27 minutes: Full code status Case management discussed with Dr. Mckeon, patient and nurse Plan discussed with: Patient My Orders My Orders Orders - SHIVANI PECK Procedure Category Date Status Time Urinalysis LAB 10/09/24 Logged 07:23 * Swallow Request ST 10/09/24 Transmitted 08:57 Pt Request For Service PT 10/09/24 Logged 10:22 Lorazepam 2mg/Ml Inj PHA 10/09/24 In Process (Ativan Inj) 12:45 * Ethics Manager CONS 10/09/24 Transmitted Consult Pantoprazole PHA 10/10/24 In Process (Protonix) 10:00 Pantoprazole PHA 10/09/24 In Process (Protonix) 15:00 Basic Metabolic Panel LAB 10/10/24 Verified 04:00 Date of Service: Oct 09, 2024 Billing Provider: SIDNEY MCKEON MD Common Visit Codes: [id number] INP/OBS CARE(HIGH) Secondary Visit Codes: [id number] CARE PLAN 30 MINUTES SHIVANI PECK Oct 09, 2024 15:02 SIDNEY MCKEON MD Oct 10, 2024 21:09
[2024-10-10] VITALS (8 sets, daily range): BP systolic 90–137; BP diastolic 32–116; PULSE 47–89; RESP 16–20; TEMP 97.4–98.6; O2SAT 90–98
[2024-10-10 06:15] LABS: Basophils # (auto) 0 10 ^3/uL (0-0.2); Basophils % (auto) 0.4 % (0.0-2.0); Eosinophils # (auto) 0.2 10 ^3/uL (0-0.8); Eosinophils % (auto) 3.1 % (0.0-7.0); Hematocrit 34.3 % (36.0-46.0); Hemoglobin 11.8 g/dL (12.2-16.2); Lymphocytes # (auto) 1.1 10 ^3/uL (0.4-5.4); Lymphocytes % (auto) 15.9 % (10.0-50.0); Mean Corpuscular Hgb Conc. 34.3 g/dL (32.0-36.0); Mean Corpuscular Volume 99.2 fL (80.0-100.0); Monocytes # (auto) 0.5 10 ^3/uL (0-1.3); Monocytes % (auto) 6.8 % (0.0-12.0); Neutrophils # (auto) 5.2 10 ^3/uL (1.6-8.6); Neutrophils % (auto) 73.8 % (37.0-80.0); Nucleated Red Blood Cells % 0.1 %; Platelet Count (auto) 194 10^3/uL (140-450); Red Blood Cells 3.46 10^6/uL (4.0-5.20); Red Cell Distribution Width 13.6 % (11.8-14.3)
[2024-10-10 06:37] LABS: Alkaline Phosphatase 69 U/L (46-116); Anion Gap 8 (5-15); Blood Urea Nitrogen 20 mg/dL (9-23); Calcium 9.4 mg/dL (8.7-10.4); Carbon Dioxide 25 mmol/L (20-31); Glucose 96 mg/dL (74-106); Potassium 3.7 mmol/L (3.5-5.1); Sodium 144 mmol/L (136-145)
[2024-10-10 06:38] LABS: Albumin 3.5 g/dL (3.2-4.8); Aspartate Aminotransferase 15 U/L (13-40); Total Protein 5.7 g/dL (5.7-8.2)
[2024-10-10 06:44] LABS: Alanine Aminotransferase 9 U/L (7-40); Chloride 111 mmol/L (98-107)
[2024-10-10 07:20] LABS: Urine Bacteria None Seen /hpf (None Seen)
[2024-10-10 07:42] LABS: Amphetamine Screen, Urine Neg (NEGATIVE); Barbiturate Scree,Urine Neg (NEGATIVE); Benzodiazephine Screen, Urine Neg (NEGATIVE); Cocaine Screen, Urine Neg (NEGATIVE)
[2024-10-10 07:43] LABS: Cannabinoid Screen, Urine Neg (NEGATIVE); Opiate Scree,Urine Neg (NEGATIVE); Phencyclidine Screen, Urine Neg (NEGATIVE); Urine Blood Negative /uL (Negative); Urine Clarity Turbid (Clear); Urine Color Yellow (Yellow); Urine Mucus FEW (None Seen); Urine Protein, UAD Negative (Negative); Urine Specific Gravity 1.027 (1.001-1.035); Urine Urobilinogen Normal (Negative); Urine WBC 5 /hpf (0 - 5); Urine pH 5.5 (5.0-9.0)
[2024-10-10] MEDS: ERGOCALCIFEROL 50,000 UNIT(1.25MG) CAP PO SCH (11:10)
[2024-10-10] MEDS: PANTOPRAZOLE 40 MG/10 ML VIAL INJ IV SCH (11:11)
[2024-10-10] MEDS: ENOXAPARIN SOD 40 MG/0.4 ML SYRINGE SC SCH (11:11)
[2024-10-10] MEDS ORDERED: ACET-1882 PO (17:56)
[2024-10-10] MEDS ORDERED: LEVE500T40 PO (17:56)
[2024-10-10] MEDS ORDERED: ERGO1CAP23 PO (17:56)
--- NOTE | 2024-10-10 18:16 | DVHDSRES ---
Discharge Summary Date of Admission Resident Creating Document: ADOLPH CHAN RESIDENT Oct 09, 2024 at 00:12 Date of Discharge: Oct 10, 2024 Admitting Diagnosis Seizures Labs/Diagnostic Data: Laboratory Results Test 10/10/24 06:00 10/10/24 04:47 10/09/24 10:05 10/09/24 00:01 Urine Color Yellow (Yellow) Urine Clarity Turbid (Clear) Urine pH 5.5 (5.0-9.0) Urine Specific [place] 1.027 (1.001-1.035) Urine Protein Negative (Negative) Urine Ketones Negative (Negative) Urine Blood Negative /uL (Negative) Urine Nitrite 2+ (Negative) Urine Bilirubin Negative (Negative) Urine Urobilinogen Normal mg/dL (Negative) Urine Leukocyte Esterase Trace /uL (Negative) Urine RBC 7 /hpf (0 - 4) Urine WBC 5 /hpf (0 - 5) Urine Squamous Epithelial Cells Few /hpf (<5) Urine Bacteria None seen /hpf (None Seen) Urine Mucus Few (None Seen) Urine Glucose Normal mg/dL (Normal) Urine Opiates Screen Neg (NEGATIVE) Urine Fentanyl Screen Neg (NEGATIVE) Urine Barbiturates Screen Neg (NEGATIVE) Urine Phencyclidine Screen Neg (NEGATIVE) Urine Amphetamines Screen Neg (NEGATIVE) Urine Benzodiazepines Screen Neg (NEGATIVE) Urine Cocaine Screen Neg (NEGATIVE) Urine Cannabinoids Screen Neg (NEGATIVE) White Blood Count 7.0 10^3/uL (4.4-10.8) Red Blood Count 3.46 10^6/uL (4.0-5.20) Hemoglobin 11.8 g/dL (12.2-16.2) Hematocrit 34.3 % (36.0-46.0) Mean Corpuscular Volume 99.2 fL (80.0-100.0) Mean Corpuscular Hemoglobin 34.0 pg (28.0-32.0) Mean Corpuscular Hemoglobin Concent 34.3 g/dL (32.0-36.0) Red Cell Distribution Width 13.6 % (11.8-14.3) Platelet Count 194 10^3/uL (140-450) Mean Platelet Volume 8.1 fL (6.9-10.8) Neutrophils (%) (Auto) 73.8 % (37.0-80.0) Lymphocytes (%) (Auto) 15.9 % (10.0-50.0) Monocytes (%) (Auto) 6.8 % (0.0-12.0) Eosinophils (%) (Auto) 3.1 % (0.0-7.0) Basophils (%) (Auto) 0.4 % (0.0-2.0) Neutrophils # (Auto) 5.2 10 ^3/uL (1.6-8.6) Lymphocytes # (Auto) 1.1 10 ^3/uL (0.4-5.4) Monocytes # (Auto) 0.5 10 ^3/uL (0-1.3) Eosinophils # (Auto) 0.2 10 ^3/uL (0-0.8) Basophils # (Auto) 0 10 ^3/uL (0-0.2) Nucleated Red Blood Cells 0.1 % Sodium Level 144 mmol/L (136-145) Potassium Level 3.7 mmol/L (3.5-5.1) Chloride Level 111 mmol/L (98-107) Carbon Dioxide Level 25 mmol/L (20-31) Anion Gap 8 (5-15) Blood Urea Nitrogen 20 mg/dL (9-23) Creatinine 0.69 mg/dL (0.550-1.02) Glomerular Filtration Rate Calc 90 mL/min (>90) BUN/Creatinine Ratio 29.0 (10.0-20.0) Serum Glucose 96 mg/dL (74-106) Calcium Level 9.4 mg/dL (8.7-10.4) Total Bilirubin 1.0 mg/dL (0.2-1.0) Aspartate Amino Transferase (AST) 15 U/L (13-40) Alanine Aminotransferase (ALT) 9 U/L (7-40) Alkaline Phosphatase 69 U/L (46-116) Total Protein 5.7 g/dL (5.7-8.2) Albumin 3.5 g/dL (3.2-4.8) Magnesium Level 2.0 mg/dL (1.6-2.6) Creatine Kinase 197 U/L (34-145) Vitamin B12 Level 456 pg/mL (211-911) Vitamin D 25-Hydroxy 24.0 ng/mL (30.0-100) Thyroid Stimulating Hormone (TSH) 1.28 uIU/mL (0.55-4.78) Lactic Acid Level 1.6 mmol/L (0.4-2.0) Troponin I High Sensitivity 9 ng/L (</=34) Test 10/08/24 22:01 Prothrombin Time 10.2 sec (9.3-11.8) Prothrombin Time INR 0.96 (0.9-1.15) Activated Partial Thromboplast Time < 20.0 SEC (24.5-34.5) Phenytoin (Dilantin) Level < 2.0 ug/mL (10-20) Plasma/Serum Blood Alcohol < 3.0 mg/dL (<10) Other Laboratory Tests 10/10/24 04:47 Brief Hx & Hospital Course: Olivia Heaton is a 74 years old female was brought in by the EMS due to seizure. Patient is poor history, caregiver gave the information, per caregiver patient ran out of her medications 2-3 days back, yesterday she developed 1 episode seizures which lasts for 2-3 minutes associated with 1 episode of vomiting after the seizure episode. Patient denies fever, diarrhea, chills, diaphoresis, chest pain, abdominal pain, and other acute associated symptoms. Past medical history: seizure questionable secondary to alcohol abuse (patient was not on anticonvulsive medication), history of stroke with probable vascular dementia, anxiety, hypertension, hyperlipidemia Surgical history: Left hip surgery in 2019 Family history: Reviewed, noncontributory Social history: Patient lives with a caregiver. Occasional alcohol tobacco abuse but no other drug abuse Allergies: Naproxen Home medication: Tylenol, aspirin 81 mg p.o. daily, atorvastatin 10 mg p.o. daily, diphenhydramine, vitamin-D, lisinopril 2.5 mg p.o. daily, lorazepam 2 mg p.o. daily, omeprazole 20 mg p.o. daily, senna 8.6 mg p.o. b.i.d. Brief hospital course: Breakthrough seizures, requiring on admission IV levetiracetam and lorazepam p.r.n.. Obtained head CT which showed no intracranial pathology and also hip x-ray which showed no acute pathology.. Required 48 hours of observation to assure patient responding to medical treatment, during hospital stay patient did not present new episode of seizure. 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 Patient hemodynamically stable, asymptomatic, with no episodes of breakthrough seizure after-convulsive medication, in condition to be discharged home. Was granted under optimal medical therapy (Keppra 500 mg p.o. b.i.d.), gave her advice on healthy lifestyle habits, and follow up as outpatient with PCP, and neurologist. DIAGNOSIS Breakthrough seizure Questionable acute metabolic encephalopathy Probable underlying vascular dementia Lactic acidosis Hypertension Hyperlipidemia History recurrent fall Anxiety Physical examination on the day of discharge Patient lying in bed, in no acute distress General: Lucid, afebrile, mucosae are moist Cardiovascular: Normal S1 and S2. No murmurs, gallops or rubs Respiratory: Normal ventilation mechanics. Clear lung sounds on auscultation Abdomen: Soft, nontender, no organomegaly, normal bowel sounds MSK/skin: Mobilizes 4 limbs. Skin is dry and warm Neurological: Oriented in 3 spheres. No motor no sensitive deficits. Pupils are isocoric and reactive Goals of care discussed with the patient for 20 minutes: Full code status Case discussed with Dr. Rosales, patient, caregiver (Ezio) and nurse Operations or Procedures Head CT 1. No acute intracranial abnormality. Chest x-ray Linear bibasilar opacities likely scarring or atelectasis, pneumonia is a less likely consideration Hip x-ray There is no evidence of acute fracture or dislocation. RIght femur surgical hardware The alignment is anatomical. There is no radiopaque foreign body. Condition at Discharge: Fair Final Diagnosis/Problems List Breakthrough seizure Questionable acute metabolic encephalopathy Probable underlying vascular dementia Lactic acidosis Hypertension Hyperlipidemia History recurrent fall Anxiety Discharge Disposition: Home SNF Discharge Will this Physician continue t: No Discharge Instruct/Medications Diet: Cardiac 2g Na,low cholest Activity: No Restrictions, As Tolerated Follow Up/Referral: PCP Neurology Medications: Per EMR Discharge Statement: "Patient was advised to return to the ER or call 911 if any headaches, dizziness, shortness of breath, chest pain, abdominal pain, bleeding, fevers, or worsening of medical condition. Patient was counseled about treatment plan, medications, possible side effects, patientverbalized understanding. All questions were answered to the best of my ability. This discharge took greater then 30 minutes in planning, reviewing documentation, counseling the patient, and discussing with other team members." ASSESSMENT ASSESSMENT Assessment Breakthrough seizures Addendum Addendum Addendum I was physically present for the bush portions of the service provided to patient by THE RESIDENT. I have reviewed the documentation, discussed the case with resident and agree with the resident's documentation except as noted. Also the patient's clinical case was discussed with the patient's nurse. This medical document was created using an electronic medical record system with computerized dictation system. Although this document has been carefully reviewed, there might still be some phonetic and typographical errors. These areas are purely typographical due to imperfections of the software programs, and do not reflect any compromise in the patient's medical care. Late signature. Date of Service: Oct 10, 2024 Billing Provider: ISH ROSALES MD Common Visit Codes: 00445-OPZ/OBS DISCH DAY >30min Secondary Visit Codes: 19418-SHWOMPHW CARE PLAN 30 MINUTES (20 minutes) ADOLPH CHAN RESIDENT Oct 10, 2024 18:16 ISH ROSALES MD Oct 12, 2024 05:36
== END 2024-10-10 21:03 | disposition hospice, home (50) | DRG 100 ==
LOC: ER 20:55 → EDBD 20:55 → TELE 10-09 00:12 → TELE-WESTW 10-09 02:45
PROVIDERS: ADMIT Internal Medicine Geriatric Medicine; ATTEND Internal Medicine Geriatric Medicine
DX: G40.409 Other generalized epilepsy and epileptic syndromes, not intractable, without status epilepticus (principal); G93.41 Metabolic encephalopathy; E87.20 Acidosis, unspecified; I10 Essential (primary) hypertension; F41.9 Anxiety disorder, unspecified; E78.5 Hyperlipidemia, unspecified; F01.50 Vascular dementia, unspecified severity, without behavioral disturbance, psychotic disturbance, mood disturbance, and anxiety; Z86.73 Personal history of transient ischemic attack (TIA), and cerebral infarction without residual deficits; Z88.6 Allergy status to analgesic agent
CPT/HCPCS: 36415; 70450; 71045; 73502; 80053; 80185; 80307; 80320; 81001; 82306; 82550; 82607; 83605; 83735; 84443; 84484; 85025; 85610; 85730; 87086; 87088; 87186; 92610; 97110; 97116; 97162; 97530; G0378; J2405; J2470; J3480

== ENCOUNTER 2025-03-12 10:35 | Inpatient (IN) | payer OTHER, MEDICARE, MEDICAID ==
[~2025-03-12] VITALS: Ht 170.2 cm; Wt 51.0 kg
[~2025-03-12 10:35] MED LIST changes: +ACET-1882 PO; -ASPI81TA28 PO; +ERGO1CAP23 PO; +LEVE500T40 PO; -LEVO500T91 PO
--- NOTE | 2025-03-12 11:37 | ED.PDOC ---
Dioni. trauma (HPI) HPI Comments 74 y/o F, with PMHf of seizures, anxiety, HTN, and HLD presents to the ED for CC of s/p fall injury. Patient states, that she has experienced frequent fall in the past x2days; due, to her being unable to catch her balance. Patient reports, hitting her head during falls. Patient complains of current back pain. Upon a rrival to the ED, patient has visible abrasion to right reese and displays unsteady gait. Patient denies LOC, headache, blurred vision, nausea, or vomiting Chief Complaint: Fall Injury Time Seen by MD: 11:53 Reviewed notes: Nurses Notes, Medications, Allergies Allergies: Coded Allergies: Morphine (Verified Allergy, Unknown, 03/12/25) Naproxen (Verified Allergy, Unknown, 04/19/24) Home Meds Active Scripts Levetiracetam (Keppra) 500 Mg Tab, 1 TAB PO BID for 30 Days, #60 TAB 3 Refills Prov:ADOLPH CHAN RESIDENT 10/10/24 Ergocalciferol (VITAMIN D 92393 UNIT) 50,[address] [place], [address] UNIT PO Q7D for 30 Days, #10 CAP Prov:ADOLPH CHAN RESIDENT 10/10/24 Acetaminophen (Acetaminophen) 325 Mg Tab, 650 MG PO Q6HP PRN for 10 Days, #80 TAB Prov:ADOLPH CHAN RESIDENT 10/10/24 Reported Medications Lorazepam (Ativan) 2 Mg Tab, 1 TAB PO QPM for ANXIETY, #30 TAB 04/18/24 Nitroglycerin (NTROSTAT SUBLINGUAL) 0.4 Mg Sl, 0.4 MG SL PRN, TAB *MAY REPEAT EVERY 5 MINUTES X 3 TOTAL IF NO RELIEF, INITIATE ANALGESIC THERAPY. NOTIFY PHYSICIAN *Do not crush. 04/18/24 Ascorbic Acid (VITAMIN C TABLET) 500 Mg Tb, 1 TAB PO DAILY for SUPPLEMENT, #30 TAB 3 Refills 04/18/24 Aspirin (ASPIRIN 81) 81 Mg Tab, 81 MG OR, TAB 04/18/24 Senna (Senokot) 8.6 Mg Tab, 1 TAB PO BID for CONSTIPATION, #40 TAB 04/18/24 Atorvastatin Calcium (ATORVASTATIN CALCIUM) 10 Mg Tab, 1 TAB PO DAILY, #30 TAB 5 Refills 04/18/24 Lisinopril (Lisinopril) 2.5 Mg Tab, 1 TAB PO DAILY for HTN, #30 TAB 5 Refills 04/18/24 Omeprazole (Gnp Omeprazole) 20 Mg Tab, 1 TAB PO DAILY, #90 TAB 1 Refill 04/18/24 Hydrocodone-Acetaminophen (Hydrocodone Bitartrate/AC 10-325 mg) 1 Tab Tab, 1 TAB PO for PAIN, TAB 04/18/24 Diphenhydramine Hcl (Banophen) 25 Mg Cap, 25 MG PO BID for ITCHING, CAP 04/18/24 Information Source: Patient Mode of Arrival: Ambulatory Severity: Moderate Timing: Days Duration: Since onset Prehospital treatment: None Location: Back, Head Location of laceration: None Mechanism: Fall Associated signs and symtoms: None Past Medical History PAST MEDICAL HISTORY: Anxiety, High Lipids, HTN, Seizures Surgical History: Denies all surgeries 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: 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 Family History Family History: Unknown Social History Smoker: Non-Smoker Alcohol: Denies ETOH Use Drugs: Denies Drug Use Lives In: Home Constitutional: denies: chills, diaphoresis, fatigue, fever, malaise, sweats, w eakness, others EENTM: denies: blurred vision, double vision, ear bleeding, ear discharge, ear drainage, ear pain, ear ringing, eye pain, eye redness, hearing loss, mouth pain, mouth swelling, nasal discharge, nose bleeding, nose congestion, nose pain, photophobia, tearing, throat pain, throat swelling, voice changes, others Respiratory: denies: cough, hemoptysis, orthopnea, SOB at rest, shortness of breath, SOB with excertion, stridor, wheezing, others Cardiovascular: denies: chest pain, dizzy spells, diaphoresis, Dyspnea on exertion, edema, irregular heart beat, left arm pain, lightheadedness, palpitations, PND, syncope, others Gastrointestinal: denies: abdomen distended, abdominal pain, blood streaked bowels, constipated, diarrhea, dysphagia, difficulty swallowing, hematemesis, melena, nausea, poor appetite, poor fluid intake, rectal bleeding, rectal pain, vomiting, others Genitourinary: denies: abnormal vagina bleeding, burning, dyspareunia, dysuria, flank pain, frequency, hematuria, incontinence, pain, , vagina di scharge, urgency, others Neurological: denies: dizziness, fainting, headache, left sided numbness, left sided weakness, numbness, paresthesia, pre-existing deficit, right sided numbness, right sided weakness, seizure, speech problems, tingling, tremors, weakness, others Musculoskeletal: reports: back pain; denies: gout, joint pain, joint swelling, muscle pain, muscle stiffness, neck pain, others Integumetry: denies: bruises, change in color, change in hair/nails, dryness, laceration, lesions, lumps, rash, wounds, others Allergic/Immunocompromised: denies: Difficulty Healing, Frequent Infections, Hives, Itching, others Hematologic/Lymphatic: denies: anemia, blood clots, easy bleeding, easy bruising, swollen glands, others Endocrine: denies: excessive hunger, excessive sweating, excessive thirst, excessive urination, flushing, intolerance to cold, intolerance to heat, unexplained weight gain, unexplained weight loss, others Psychiatric: denies: anxiety, bipolar disorder, depression, hopeless, panic disorder, schizophrenia, sleepless, suicidal, others All Other Systems: Reviewed and Negative Physical Exam General Appearance: Moderate Distress, Thin HEENT: Normal ENT Inspection, Pharynx Normal, TMs Normal Neck: Full Range of Motion, Non-Tender, Normal, Normal Inspection Respiratory: Chest Non-Tender, Lungs Clear, No Accessory Muscle Use, No Respiratory Distress, Normal Breath Sounds Cardiovascular: No Edema, No JVD, No Murmur, No Gallop, Normal Peripheral Pulses, Regular Rate/Rhythm Breast Exam: Deferred Gastrointestinal: No Organomegaly, Non Tender, No Pulsatile Mass, Normal Bowel Sounds, Soft Genitalia: Deferred Pelvic: Deferred Rectal: Deferred Extremities: No calf tenderness, Normal capillary refill, Normal inspection, Normal range of motion, Non-tender, No pedal edema Musculoskeletal : Apperance: Normal Neurologic: Alert, retail wireless associate II-XII nml as Tested, No Motor Deficits, Normal Affect, Normal Mood, No Sensory Deficits Cerebellar Function: NOT DONE Reflexes: NOT DONE Skin: Normal Color Peripheral Pulses: 3+ Radial (R), 3+ Radial (L) Lymphatic: No Adenopathy Was a procedure done? Was a procedure done?: No EKG EKG : Pulse Rate (adult): 98 [place]: Normal Cardiac Rhythm: NSR Block: None Hypertrophy: None ST: Normal Differential Diagnosis Multiple Trauma: Fractures, Spine Injury, Abrasions, Contusion X-Ray, Labs, Meds, VS Vital Signs Date Time Temp Pulse Resp B/P (MAP) Pulse Ox O2 Delivery O2 Flow Rate FiO2 03/12/25 12:59 97.7 66 19 110/66 (81) 93 97.7 03/12/25 12:04 98 03/12/25 11:34 98.5 96 17 106/70 (82) 94 98.5 03/12/25 11:30 98 Lab Test 03/12/25 13:07 03/12/25 12:44 03/12/25 11:23 Range/Units Urine Color Light-orange Yellow Urine Clarity Turbid H Clear Urine pH 5.5 5.0-9.0 Urine Specific [place] 1.036 H 1.001-1.035 Urine Protein 1+ H Negative Urine Ketones 1+ H Negative Urine Blood Negative Negative /uL Urine Nitrite Negative Negative Urine Bilirubin Negative Negative Urine Urobilinogen 2 H Negative mg/dL Urine Leukocyte Esterase Negative Negative /uL Urine RBC 3 0 - 4 /hpf Urine Microscopic WBC 4 0-5 /HPF Urine Squamous Epithelial Cells Mod <5 /hpf Urine Bacteria Many H None Seen /hpf Urine Mucus Few None Seen Urine Glucose Normal Normal mg/dL White Blood Count 5.8 4.4-10.8 10^3/uL Red Blood Count 4.15 4.0-5.20 10^6/uL Hemoglobin 14.0 12.2-16.2 g/dL Hematocrit 40.9 36.0-46.0 % Mean Corpuscular Volume 98.6 80.0-100.0 fL Mean Corpuscular Hemoglobin 33.8 H 28.0-32.0 pg Mean Corpuscular Hemoglobin Concent 34.3 32.0-36.0 g/dL Red Cell Distribution Width 13.8 11.8-14.3 % Platelet Count 203 140-450 10^3/uL Mean Platelet Volume 7.7 6.9-10.8 fL Neutrophils (%) (Auto) 72.0 37.0-80.0 % Lymphocytes (%) (Auto) 16.9 10.0-50.0 % Monocytes (%) (Auto) 6.9 0.0-12.0 % Eosinophils (%) (Auto) 3.6 0.0-7.0 % Basophils (%) (Auto) 0.6 0.0-2.0 % Neutrophils # (Auto) 4.2 1.6-8.6 10 ^3/uL Lymphocytes # (Auto) 1.0 0.4-5.4 10 ^3/uL Monocytes # (Auto) 0.4 0-1.3 10 ^3/uL Eosinophils # (Auto) 0.2 0-0.8 10 ^3/uL Basophils # (Auto) 0 0-0.2 10 ^3/uL Nucleated Red Blood Cells 0.1 % Sodium Level 148 H 136-145 mmol/L Potassium Level 2.8 L 3.5-5.1 mmol/L Chloride Level 107 98-107 mmol/L Carbon Dioxide Level 30 20-31 mmol/L Anion Gap 11 5-15 Blood Urea Nitrogen 21 9-23 mg/dL Creatinine 0.76 0.550-1.02 mg/dL Glomerular Filtration Rate Calc 81 >90 mL/min BUN/Creatinine Ratio 27.6 H 10.0-20.0 Serum Glucose 103 74-106 mg/dL Calcium Level 9.2 8.7-10.4 mg/dL Troponin I High Sensitivity 4 </=34 ng/L POC Glucose 112 H 70-106 mg/dl [place] [address] Ph: [phone] DIAGNOSTIC IMAGING Diagnostic Imaging Report : [id number] Signed PATIENT: KOKI SOLANO ACCT: [id number] UNIT: [id number] : 1950 LOC: ER ROOM / BED: / AGE / SEX: 74 / F ADM STATUS: REG ER SERVICE 1205 ORDERING PHYSICIAN: JUAN BUSTAMANTE MD PROCEDURE(s): CXRP - CHEST PORTABLE REASON: sob ORDER NUMBER(s): [id number], ACCESSION NUMBER(s): [id number] EXAM: XY CHEST PORTABLE REASON FOR EXAM: sob TECHNIQUE: 1 view of the chest COMPARISON: XY CHEST XRAY 1 VIEW on DOS: 10/09/24 FINDINGS/IMPRESSION: LUNGS: No pleural effusion, consolidation, or pneumothorax MEDIASTINUM: Unremarkable BONES: No acute osseous abnormality OTHER: None ATED BY: LUZ BENITEZ MD DICTATED DATE/TIME: 03/12/251240 SIGNED BY: LUZ BENITEZ MD SIGNED DATE/TIME: 03/12/251240 CC: [address] [address] Ph: [phone] DIAGNOSTIC IMAGING Diagnostic Imaging Report : [id number] Signed PATIENT: KOKI SOLANO ACCT: [id number] UNIT: [id number] : 1950 LOC: ER ROOM / BED: / AGE / SEX: 74 / F ADM STATUS: REG ER SERVICE 1205 ORDERING PHYSICIAN: JUAN BUSTAMANTE MD PROCEDURE(s): LUMB2 - LUMBAR SPINE 3 VIEW REASON: fall ORDER NUMBER(s): [id number], ACCESSION NUMBER(s): [id number] EXAM: XY LUMBAR SPINE 3 VIEW INDICATION: fall TECHNIQUE: 2 views of the lumbar spine COMPARISON: None FINDINGS/IMPRESSION: Superior endplate compression with 50% central height loss of T12. Minimal superior endplate height loss of L2 and L3. Multilevel degenerative change of the lumbar spine. ATED BY: LUZ BENITEZ MD DICTATED DATE/TIME: 03/12/251239 SIGNED BY: LUZ BENITEZ MD SIGNED DATE/TIME: 03/12/251239 CC: Patient alert. Has been falling a lot. Complaining of flank pain. Vitals stable. X-ray does show compression of the endplate. No retro pulsation. Spine consultation. Degenerative disc disease. Potassium is low. Sodium is high. No obvious injury. Was given potassium. Establish intravenous access. Was given fluids. Reviewed her history. Explained to the patient. Continue monitoring. EKG reviewed does not show any acute changes. Time of 1ST Reevaluation: 12:27 Reevaluation 1ST: Unchanged Patient Education/Counseling: Diagnosis, Treatment Family Education/Counseling: No Family Present Departure 1 Departure Time of Disposition: 14:06 Impression: Primary Impression: Hypokalemia Additional Impressions: Hypernatremia Degenerative disc disease Qualified Codes: M51.379 - Other intervertebral disc degeneration, lumbosacral region without mention of lumbar back pain or lower extremity pain Disposition: 09 ADMITTED INPATIENT Admit to: Med Surg Condition: Guarded Critical Care Note Critical Care Time?: Yes (90 min-critical care time only) Critical care comment: Abnormalities in electrolytes. Stability Stability form required: No Heart Score Heart Score: Heart Score Response (Comments) Value History Slightly Suspicious 0 EKG Normal 0 Age >65 2 Risk Factors >3 or Hx ASHD 2 Troponin Normal limit 0 Total 4 I personally scribed for JUAN BUSTAMANTE MD ([email or web address]) on 03/12/25 at 11:37. Electronically submitted by Jenny Ruiz ([email or web address]). I personally scribed for JUAN BUSTAMANTE MD ([email or web address]) on 03/12/25 at 12:03. Electronically submitted by Jenny Ruiz ([email or web address]). I personally scribed for JUAN BUSTAMANTE MD ([email or web address]) on 03/12/25 at 12:04. Electronically submitted by Jenny Ruiz ([email or web address]). I personally scribed for JUAN BUSTAMANTE MD ([email or web address]) on 03/12/25 at 12:46. Electronically submitted by Jenny Ruiz ([email or web address]). I personally scribed for JUAN BUSTAMANTE MD ([email or web address]) on 03/12/25 at 12:47. Electronically submitted by Jenny Ruiz ([email or web address]). JUAN BUSTAMANTE MD March 12, 2025 11:37
--- NOTE | 2025-03-12 12:43 | DVH ---
EXAM: XY LUMBAR SPINE 3 VIEW INDICATION: fall TECHNIQUE: 2 views of the lumbar spine COMPARISON: None FINDINGS/IMPRESSION: Superior endplate compression with 50% central height loss of T12. Minimal superior endplate height l oss of L2 and L3. Multilevel degenerative change of the lumbar spine.
--- NOTE | 2025-03-12 12:43 | DVH ---
EXAM: XY CHEST PORTABLE REASON FOR EXAM: sob TECHNIQUE: 1 view of the chest COMPARISON: XY CHEST XRAY 1 VIEW on DOS: 10/09/24 FINDINGS/IMPRESSION: LUNGS: No pleural effusion, consolidation, or pneumothorax MEDIASTINUM: Unremarkable BONES: No acute osseous abnormality OTHER: None
--- NOTE | 2025-03-12 12:47 | ECG ---
[facility] Test Date: 2025-03-12 Test Time: 11:30:36 Pat Name: KOKI SOLANO Department: ER Room: 0246T Gender: F [employer] Supervisor: LORNE : 1950 Requested By: JUAN BUSTAMANTE Order Number: [id number] Reading MD: Jose Carlos Aguilar Measurements Intervals [place] Rate: 98 P: 80 VT: 149 QRS: 84 QRSD: 53 T: -29 QT: 424 QTc: 542 Interpretive Statements Sinus rhythm Atrial premature complex Biatrial enlargement Borderline right axis deviation Borderline repolarization abnormality Prolonged QT interval Electronically Signed On 03-17-2025 12:08:02 PDT by Jose Carlos Aguilar Please click the below link to view image of tracing.
[2025-03-12 13:02] LABS: Basophils # (auto) 0 10 ^3/uL (0-0.2); Basophils % (auto) 0.6 % (0.0-2.0); Eosinophils # (auto) 0.2 10 ^3/uL (0-0.8); Eosinophils % (auto) 3.6 % (0.0-7.0); Hematocrit 40.9 % (36.0-46.0); Lymphocytes % (auto) 16.9 % (10.0-50.0); Mean Corpuscular Hemoglobin 33.8 pg (28.0-32.0); Mean Corpuscular Hgb Conc. 34.3 g/dL (32.0-36.0); Mean Corpuscular Volume 98.6 fL (80.0-100.0); Monocytes # (auto) 0.4 10 ^3/uL (0-1.3); Monocytes % (auto) 6.9 % (0.0-12.0); Neutrophils # (auto) 4.2 10 ^3/uL (1.6-8.6); Nucleated Red Blood Cells % 0.1 %; Platelet Count (auto) 203 10^3/uL (140-450); Red Blood Cells 4.15 10^6/uL (4.0-5.20); Red Cell Distribution Width 13.8 % (11.8-14.3); White Blood Cell 5.8 10^3/uL (4.4-10.8)
[2025-03-12 13:13] LABS: Anion Gap 11 (5-15); Carbon Dioxide 30 mmol/L (20-31)
[2025-03-12 13:14] LABS: Calcium 9.2 mg/dL (8.7-10.4)
[2025-03-12 13:17] LABS: Chloride 107 mmol/L (98-107); Potassium 2.8 mmol/L (3.5-5.1); Sodium 148 mmol/L (136-145)
[2025-03-12 13:19] LABS: BUN/Creatinine Ratio 27.6 (10.0-20.0); Blood Urea Nitrogen 21 mg/dL (9-23); Glucose 103 mg/dL (74-106)
[2025-03-12 13:41] LABS: Urine Bacteria MANY /hpf (None Seen); Urine Blood Negative /uL (Negative); Urine Clarity Turbid (Clear); Urine Color Light-Orange (Yellow); Urine Mucus FEW (None Seen); Urine Protein, UAD 1+ (Negative); Urine Specific Gravity 1.036 (1.001-1.035); Urine Squamous Epithelial Cell MOD /hpf (<5); Urine Urobilinogen 2 mg/dL (Negative); Urine WBC 4 /HPF (0-5); Urine pH 5.5 (5.0-9.0)
[2025-03-12] MEDS: SODIUM CHLORIDE 0.9% 1,000 ML IV ONE ×2 (14:00→14:45)
[2025-03-12] MEDS: HYDROcodone-ACET 10/325MG TAB PO ONE (14:47)
[2025-03-12] MEDS: POTASSIUM EFFERVESENT TAB 25 MEQ PO ONE (14:48)
[2025-03-12 14:58] VITALS: PULSE 81; RESP 20; O2SAT 94
--- NOTE | 2025-03-12 15:08 | DVH ---
CT BRAIN WITHOUT CONTRAST HISTORY: head strike s/p fall TECHNIQUE: Axial scans were obtained from the skull base through the vertex without contrast. [place] l and coronal reformats were generated. One or more of the following radiation dose reduction techniq ues were used for this examination: automated exposure control, adjustment of the mA and/or kV accord ing to patient size, use of iterative reconstruction technique. COMPARISON: CT HEAD WITHOUT CONTRAST on DOS: 10/08/24, CT HEAD WITHOUT CONTRAST on DOS: 04/17/24 FINDINGS: The ventricular system and cortical sulci are normal in size for patient age. No abnormal extra-axial fluid collections or findings of intracranial hemorrhage. No intracranial mass or findings of acute ischemic infarction are demonstrated on these noncontrast s cans. Visualized paranasal sinuses are clear. No evidence of skull fracture. Bilateral hyperostosis frontal is interna. Other: Unchanged from prior study. IMPRESSION: 1. No acute intracranial findings. Negative CT scan head.
[2025-03-12] MEDS ORDERED: ACETAMINOPHEN 325 MG TAB PO PRN (16:30)
[2025-03-12] MEDS ORDERED: MORPHINE SULFATE INJ 2 MG/ml SYRG IV PRN (16:30)
--- NOTE | 2025-03-12 16:33 | DVHHP2 ---
History of Present Illness Reason for Visit: Back pain Status post mechanical fall History of Present Illness Olivia Heaton is a 74-year-old female with past medical history of hypertension, hyperlipidemia, alcohol use, anxiety, seizures, CVA, left hip surgery in 2019, and pelvic fracture who presents to the ED with back pain status post fall 2 days ago. Patient reports that she was walking and she fell and hit her head on the counter top two days ago. Patient reports that she did not lose any consciousness. She also reports another fall, she was outside walking and she hit her head on the garage door with no loss of consciousness. Patient states that she does use a front wheel walker but she did not use it the last several days. Patient also states that she smokes half a pack of cigarettes per day, quit drinking, and does not use illicit drugs. She denies any chest pain, shortness of breath, fever, chills, weakness, lightheadedness, dizziness, recent travels, recent sick contacts, abdominal pain, nausea, vomiting, or diarrhea. 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 moist/pink Respiratory: Clear to auscultation, Normal air movement Cardiovascular: Regular rate, Normal S1, Normal S2, No murmurs Abdominal: Normal bowel sounds, Soft Extremities: No clubbing, No cyanosis Neuro: Normal speech, Normal tone, Sensation intact Psych/Mental Status: Mental status NL, Mood NL Labs/Xrays Labs Test 03/12/25 13:07 03/12/25 12:44 03/12/25 11:23 Range/Units Urine Color Light-orange Yellow Urine Clarity Turbid H Clear Urine pH 5.5 5.0-9.0 Urine Specific [place] 1.036 H 1.001-1.035 Urine Protein 1+ H Negative Urine Ketones 1+ H Negative Urine Blood Negative Negative /uL Urine Nitrite Negative Negative Urine Bilirubin Negative Negative Urine Urobilinogen 2 H Negative mg/dL Urine Leukocyte Esterase Negative Negative /uL Urine RBC 3 0 - 4 /hpf Urine Microscopic WBC 4 0-5 /HPF Urine Squamous Epithelial Cells Mod <5 /hpf Urine Bacteria Many H None Seen /hpf Urine Mucus Few None Seen Urine Glucose Normal Normal mg/dL White Blood Count 5.8 4.4-10.8 10^3/uL Red Blood Count 4.15 4.0-5.20 10^6/uL Hemoglobin 14.0 12.2-16.2 g/dL Hematocrit 40.9 36.0-46.0 % Mean Corpuscular Volume 98.6 80.0-100.0 fL Mean Corpuscular Hemoglobin 33.8 H 28.0-32.0 pg Mean Corpuscular Hemoglobin Concent 34.3 32.0-36.0 g/dL Red Cell Distribution Width 13.8 11.8-14.3 % Platelet Count 203 140-450 10^3/uL Mean Platelet Volume 7.7 6.9-10.8 fL Neutrophils (%) (Auto) 72.0 37.0-80.0 % Lymphocytes (%) (Auto) 16.9 10.0-50.0 % Monocytes (%) (Auto) 6.9 0.0-12.0 % Eosinophils (%) (Auto) 3.6 0.0-7.0 % Basophils (%) (Auto) 0.6 0.0-2.0 % Neutrophils # (Auto) 4.2 1.6-8.6 10 ^3/uL Lymphocytes # (Auto) 1.0 0.4-5.4 10 ^3/uL Monocytes # (Auto) 0.4 0-1.3 10 ^3/uL Eosinophils # (Auto) 0.2 0-0.8 10 ^3/uL Basophils # (Auto) 0 0-0.2 10 ^3/uL Nucleated Red Blood Cells 0.1 % Sodium Level 148 H 136-145 mmol/L Potassium Level 2.8 L 3.5-5.1 mmol/L Chloride Level 107 98-107 mmol/L Carbon Dioxide Level 30 20-31 mmol/L Anion Gap 11 5-15 Blood Urea Nitrogen 21 9-23 mg/dL Creatinine 0.76 0.550-1.02 mg/dL Glomerular Filtration Rate Calc 81 >90 mL/min BUN/Creatinine Ratio 27.6 H 10.0-20.0 Serum Glucose 103 74-106 mg/dL Calcium Level 9.2 8.7-10.4 mg/dL Troponin I High Sensitivity 4 </=34 ng/L POC Glucose 112 H 70-106 mg/dl CT BRAIN WITHOUT CONTRAST HISTORY: head strike s/p fall TECHNIQUE: Axial scans were obtained from the skull base through the vertex without contrast. [place]l and coronal reformats were generated. One or more of the following radiation dose reduction techniques were used for this examination: automated exposure control, adjustment of the mA and/or kV according to patient size, use of iterative reconstruction technique. COMPARISON: CT HEAD WITHOUT CONTRAST on DOS: 10/08/24, CT HEAD WITHOUT CONTRAST on DOS: 04/17/24 FINDINGS: The ventricular system and cortical sulci are normal in size for patient age. No abnormal extra-axial fluid collections or findings of intracranial hemorrhage. No intracranial mass or findings of acute ischemic infarction are demonstrated on these noncontrast scans. Visualized paranasal sinuses are clear. No evidence of skull fracture. Bilateral hyperostosis frontalis interna. Other: Unchanged from prior study. IMPRESSION: 1. No acute intracranial findings. Negative CT scan head. EXAM: XY LUMBAR SPINE 3 VIEW INDICATION: fall TECHNIQUE: 2 views of the lumbar spine COMPARISON: None FINDINGS/IMPRESSION: Superior endplate compression with 50% central height loss of T12. Minimal superior endplate height loss of L2 and L3. Multilevel degenerative change of the lumbar spine. EXAM: XY CHEST PORTABLE REASON FOR EXAM: sob TECHNIQUE: 1 view of the chest COMPARISON: XY CHEST XRAY 1 VIEW on DOS: 10/09/24 FINDINGS/IMPRESSION: LUNGS: No pleural effusion, consolidation, or pneumothorax MEDIASTINUM: Unremarkable BONES: No acute osseous abnormality OTHER: None Assessment/Plan Assessment/Plan Assessment Intractable back pain status post mechanical fall Hypernatremia Hypokalemia Superior endplate compression with 50% central height loss of T12. Minimal superior endplate height loss of L2 and L3. Multilevel degenerative change of the lumbar spine. History of multiple falls History of hypertension History of hyperlipidemia History of alcohol use History of anxiety History of seizures History of CVA History of left hip surgery in 2019 History of pelvic fracture Plan Admit to tele Antiemetics Pain management Blood alcohol UDS Replete lytes UA NS 2 L given ED Potassium bicarb given ED X-ray lumbar spine Chest x-ray EKG Troponin negative CT head MRI lumbar spine ordered Diet Home medications reconciled DVT prophylaxis-SCDs PUD prophylaxis-not indicated no history of GERD or GI bleed Discussed plan of care with patient and nurse Rounding hospitalist consider spinal consult if MRI comes back acute fracture versus chronic Plan discussed with: Patient My Orders Orders - CHANA LOPEZ Procedure Category Date Status Time Head Without Contrast CT 03/12/25 Resulted 14:17 Date of Service: March 12, 2025 Billing Provider: CHANA LOPEZ Common Visit Codes: [id number] INP/OBS CARE (HIGH) CHANA LOPEZ March 12, 2025 16:33
[2025-03-12] MEDS ORDERED: OMEP10CA5 (17:03)
[2025-03-12 21:00] VITALS: BP 116/64; PULSE 74; RESP 17; TEMP 97.4; O2SAT 91
[2025-03-12] MEDS: LORazepam 0.5 MG TAB PO SCH (21:20)
[2025-03-12] MEDS: levETIRAcetam 500 MG TAB PO SCH (21:20)
[2025-03-13] VITALS (8 sets, daily range): BP systolic 90–144; BP diastolic 42–75; PULSE 67–101; RESP 16–19; TEMP 97.4–97.9; O2SAT 91–93
[2025-03-13] MEDS: ERGOCALCIFEROL 50,000 UNIT(1.25MG) CAP PO SCH (02:22)
[2025-03-13 06:21] LABS: Basophils # (auto) 0 10 ^3/uL (0-0.2); Basophils % (auto) 0.6 % (0.0-2.0); Eosinophils # (auto) 0.4 10 ^3/uL (0-0.8); Eosinophils % (auto) 8.4 % (0.0-7.0); Hematocrit 36.6 % (36.0-46.0); Hemoglobin 12.6 g/dL (12.2-16.2); Lymphocytes # (auto) 1.1 10 ^3/uL (0.4-5.4); Mean Corpuscular Hgb Conc. 34.5 g/dL (32.0-36.0); Mean Corpuscular Volume 98.5 fL (80.0-100.0); Monocytes # (auto) 0.4 10 ^3/uL (0-1.3); Monocytes % (auto) 8.9 % (0.0-12.0); Neutrophils # (auto) 2.8 10 ^3/uL (1.6-8.6); Neutrophils % (auto) 58.1 % (37.0-80.0); Nucleated Red Blood Cells % 0.1 %; Platelet Count (auto) 187 10^3/uL (140-450); Red Blood Cells 3.71 10^6/uL (4.0-5.20); Red Cell Distribution Width 13.6 % (11.8-14.3); White Blood Cell 4.8 10^3/uL (4.4-10.8)
[2025-03-13 06:28] LABS: Alanine Aminotransferase 10 U/L (7-40); Albumin 3.7 g/dL (3.2-4.8); Alkaline Phosphatase 65 U/L (46-116); Anion Gap 9 (5-15); Aspartate Aminotransferase 15 U/L (13-40); BUN/Creatinine Ratio 30.4 (10.0-20.0); Bilirubin, Total 0.8 mg/dL (0.2-1.0); Blood Urea Nitrogen 21 mg/dL (9-23); Calcium 9.3 mg/dL (8.7-10.4); Carbon Dioxide 29 mmol/L (20-31); Chloride 107 mmol/L (98-107); Glucose 94 mg/dL (74-106); Sodium 145 mmol/L (136-145); Total Protein 5.9 g/dL (5.7-8.2)
[2025-03-13] MEDS: ASCORBIC ACID 500 MG TAB PO SCH (08:46)
[2025-03-13] MEDS: ASPirin-EC 81 mg tab PO SCH (08:46)
[2025-03-13] MEDS: PANTOPRAZOLE 40 MG TAB PO SCH (08:47)
[2025-03-13] MEDS: LISINOPRIL 5 MG TAB PO SCH (08:47)
[2025-03-13] MEDS: ATORVASTATIN 20 MG TAB PO SCH (08:47)
[2025-03-13] MEDS: ONDANSETRON HCL 4 MG/2 ML VIAL IV PRN (10:56)
--- NOTE | 2025-03-13 12:04 | DVH ---
CLINICAL INFORMATION: Back pain status post fall injury. TECHNIQUE: Multisequence multiplanar MRI images of the lumbar spine were obtained without contrast. COMPARISON: Radiographs dated 03/12/2025. INTERPRETATION: Minimal retrolisthesis of L2 on L3. Vertebral body heights are maintained. Posteri or elements are intact. No focal suspicious marrow signal abnormality. Visualized spinal cord and cauda equina are within normal limits. The conus medullaris is appropriate in signal at the L1-L2 le demetris. 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 [id number]-[id number] fatty atrop hy of the paraspinal musculature in the lower lumbosacral spine. Small subcentimeter T2 hyperintense lesion of the inferior pole of the right kidney, possibly a cyst, but not well characterized on this exam. L1-L2: Disc desiccation. No significant spinal canal stenosis. Facet hypertrophy with mild bilateral neural foraminal stenoses. Suspected small, thin annular fissure. L2-L3: Disc desiccation with moderate disc space narrowing and mild diffuse disc bulge. No significa nt spinal canal stenosis. Facet hypertrophy with mild bilateral neural foraminal stenoses. Small thin annular fissure. L3-L4: Disc desiccation with mild disc space narrowing. Diffuse disc bulge mildly indenting the vent ral aspect of the thecal sac without significant spinal canal stenosis. Facet hypertrophy with mild b ilateral neural foraminal stenoses. Small thin annular fissures at the central posterior aspect of th e disc and at the right foraminal aspect of the disc. L4-L5: Disc desiccation with mild disc bulge. No significant spinal canal stenosis. Facet hypertroph y and right foraminal disc protrusion contributes to moderate to left neural foraminal stenosis. L5-S1: Disc desiccation. No significant spinal canal stenosis. Facet hypertrophy with mild bilatera l neural foraminal stenoses, left greater than right. IMPRESSION: 1. Minimal retrolisthesis of L2 on L3. 2. Degenerative disc disease and facet disease in the lumbar spine. No significant spinal canal steno sis. Multilevel neural foraminal stenoses as detailed above, greatest at the left L4-L5 level. 3. Multilevel small thin annular fissures. 4. Additional findings as described above.
--- NOTE | 2025-03-13 13:13 | DVHPN2 ---
Reviewed: Care Plan, H&P, Labs, Medications, Previous Orders, Radiology Changes from previous H/P or p: No Changes Musculoskeletal: back pain Objective Vitals Vital Signs Date Time Temp Pulse Resp B/P (MAP) Pulse Ox O2 Delivery O2 Flow Rate FiO2 03/13/25 12:34 97.4 67 16 123/68 (86) 91 97.4 03/13/25 08:00 Room Air* 0 21 Intake/Output Intake and Output 03/13/25 07:00 Intake Total 480 ml Output Total 300 ml Balance 180 ml Intake Oral 480 ml Output Urine Total 300 ml # Bowel Movements 1 Medications Current Medications Medications Dose Ordered Sig/Carlos Route Start Time Stop Time Status Last Admin Dose Admin Acetaminophen/ Hydrocodone Bitart 1 tab Q4HP PRN PO 03/12/25 16:30 Ondansetron HCl 4 mg Q4HP PRN IV 03/12/25 16:30 03/13/25 10:56 4 MG Acetaminophen 650 mg Q6HP PRN PO 03/12/25 16:30 Morphine Sulfate 2 mg Q4HPRN PRN IV 03/12/25 16:30 Ascorbic Acid 500 mg DAILY PO 03/13/25 10:00 03/13/25 08:46 500 MG Aspirin 81 mg DAILY PO 03/13/25 10:00 03/13/25 08:46 81 MG Ergocalciferol 50,000 unit Q7D PO 03/12/25 17:15 03/13/25 02:22 50,000 UNIT Levetiracetam 500 mg BID PO 03/12/25 22:00 03/13/25 08:46 500 MG Atorvastatin Calcium 10 mg DAILY PO 03/13/25 10:00 03/13/25 08:47 10 MG Lisinopril 2.5 mg DAILY PO 03/13/25 10:00 03/13/25 08:47 2.5 MG Lorazepam 2 mg HS PO 03/12/25 22:00 03/12/25 21:20 2 MG Pantoprazole Sodium 40 mg DAILY PO 03/13/25 10:00 03/13/25 08:47 40 MG Laboratory Results Laboratory Tests 03/13/25 05:16 Chemistry Test 03/13/25 05:16 Albumin 3.7 g/dL (3.2-4.8) Calcium Level 9.3 mg/dL (8.7-10.4) Total Protein 5.9 g/dL (5.7-8.2) LFT Test 03/13/25 05:16 Alanine Aminotransferase (ALT) 10 U/L (7-40) Alkaline Phosphatase 65 U/L (46-116) Aspartate Amino Transferase (AST) 15 U/L (13-40) Total Bilirubin 0.8 mg/dL (0.2-1.0) Urinalysis Test 03/12/25 13:07 Urine Color Light-orange (Yellow) Urine Clarity Turbid (Clear) H Urine pH 5.5 (5.0-9.0) Urine Specific [place] 1.036 (1.001-1.035) Urine Protein 1+ (Negative) H Urine Ketones 1+ (Negative) H Urine Blood Negative /uL (Negative) Urine Nitrite Negative (Negative) Urine Bilirubin Negative (Negative) Urine Urobilinogen 2 mg/dL (Negative) H Urine Leukocyte Esterase Negative /uL (Negative) Urine RBC 3 /hpf (0 - 4) Urine Microscopic WBC 4 /HPF (0-5) Urine Squamous Epithelial Cells Mod /hpf (<5) Urine Bacteria Many /hpf (None Seen) H Urine Mucus Few (None Seen) Urine Glucose Normal mg/dL (Normal) Labs and/or images reviewed: Labs reviewed by me, Image(s) reviewed by me Assessment/Plan Assessment/Plan Intractable back pain status post mechanical fall Hypernatremia Hypokalemia Superior endplate compression with 50% central height loss of T12. Minimal superior endplate height loss of L2 and L3. Multilevel degenerative change of the lumbar spine: Consult for spine surgeon Recurrent falls Hypertension Hypercholesterolemia Chronic current smoker counseling Alcohol abuse Anxiety Seizures History of CVA History of pelvic fracture History of left hip surgery 2018 Time Spent 75 minutes Advanced care planning time 20 minutes Patient is full Patient is hospice revoked Plan discussed with: Patient My Orders Orders - TALIB GUARDADO MD Procedure Category Date Status Time Drug Screen LAB 03/13/25 Logged 13:01 * Orthopedic Consult CONS 03/13/25 Transmitted 13:02 Date of Service: March 13, 2025 Billing Provider: TALIB GUARDADO MD Common Visit Codes: [id number] CARE 30-74 MIN TALIB GUARDADO MD March 13, 2025 13:13
[2025-03-13] MEDS: ALPRAZolam 0.5 MG TAB PO SCH (13:39)
[2025-03-14] VITALS (7 sets, daily range): BP systolic 93–116; BP diastolic 55–68; PULSE 65–95; RESP 16–18; TEMP 97.4–97.5; O2SAT 90–93
--- NOTE | 2025-03-14 09:38 | DVHPN2 ---
Reviewed: Care Plan, H&P, Labs, Medications, Previous Orders, Radiology Changes from previous H/P or p: No Changes Musculoskeletal: back pain Objective Vitals Vital Signs Date Time Temp Pulse Resp B/P (MAP) Pulse Ox O2 Delivery O2 Flow Rate FiO2 03/14/25 05:00 97.4 88 18 116/67 (83) 92 97.4 03/13/25 20:00 Room Air* 0 21 Intake/Output Intake and Output 03/14/25 07:00 Intake Total 2080 ml Output Total 400 ml Balance 1680 ml Intake Oral 2080 ml Output Urine Total 400 ml # Voids 9 Medications Current Medications Medications Dose Ordered Sig/Carlos Route Start Time Stop Time Status Last Admin Dose Admin Acetaminophen/ Hydrocodone Bitart 1 tab Q4HP PRN PO 03/12/25 16:30 Ondansetron HCl 4 mg Q4HP PRN IV 03/12/25 16:30 03/13/25 10:56 4 MG Acetaminophen 650 mg Q6HP PRN PO 03/12/25 16:30 Morphine Sulfate 2 mg Q4HPRN PRN IV 03/12/25 16:30 Ascorbic Acid 500 mg DAILY PO 03/13/25 10:00 03/13/25 08:46 500 MG Aspirin 81 mg DAILY PO 03/13/25 10:00 03/13/25 08:46 81 MG Ergocalciferol 50,000 unit Q7D PO 03/12/25 17:15 03/13/25 02:22 50,000 UNIT Levetiracetam 500 mg BID PO 03/12/25 22:00 03/13/25 20:45 500 MG Atorvastatin Calcium 10 mg DAILY PO 03/13/25 10:00 03/13/25 08:47 10 MG Lisinopril 2.5 mg DAILY PO 03/13/25 10:00 03/13/25 08:47 2.5 MG Pantoprazole Sodium 40 mg DAILY PO 03/13/25 10:00 03/13/25 08:47 40 MG Alprazolam 1 mg TID PO 03/13/25 14:00 03/14/25 05:43 1 MG Laboratory Results Laboratory Tests 03/13/25 05:16 Urinalysis Test 03/12/25 13:07 Urine Color Light-orange (Yellow) Urine Clarity Turbid (Clear) H Urine pH 5.5 (5.0-9.0) Urine Specific [place] 1.036 (1.001-1.035) Urine Protein 1+ (Negative) H Urine Ketones 1+ (Negative) H Urine Blood Negative /uL (Negative) Urine Nitrite Negative (Negative) Urine Bilirubin Negative (Negative) Urine Urobilinogen 2 mg/dL (Negative) H Urine Leukocyte Esterase Negative /uL (Negative) Urine RBC 3 /hpf (0 - 4) Urine Microscopic WBC 4 /HPF (0-5) Urine Squamous Epithelial Cells Mod /hpf (<5) Urine Bacteria Many /hpf (None Seen) H Urine Mucus Few (None Seen) Urine Glucose Normal mg/dL (Normal) Labs and/or images reviewed: Labs reviewed by me, Image(s) reviewed by me Assessment/Plan Assessment/Plan Intractable back pain status post mechanical fall Hypernatremia Hypokalemia Superior endplate compression with 50% central height loss of T12. Minimal superior endplate height loss of L2 and L3. 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
[2025-03-14] MEDS: HYDROcodone-ACET 5/325MG TAB PO PRN (10:37)
[2025-03-14] MEDS: diphenhdrAMINE HCL 25 MG CAP PO SCH (14:31)
[2025-03-15] VITALS (8 sets, daily range): BP systolic 96–157; BP diastolic 54–82; PULSE 62–90; RESP 16–18; TEMP 97.1–98.2; O2SAT 91–96
--- NOTE | 2025-03-15 10:25 | DVHPN2 ---
Reviewed: Care Plan, H&P, Labs, Medications, Previous Orders, Radiology Changes from previous H/P or p: No Changes Musculoskeletal: back pain Objective Vitals Vital Signs Date Time Temp Pulse Resp B/P (MAP) Pulse Ox O2 Delivery O2 Flow Rate FiO2 03/15/25 08:58 98.2 64 16 134/76 (95) 96 98.2 03/15/25 08:10 Room Air* 0 21 Intake/Output Intake and Output 03/15/25 07:00 Intake Total 1270 ml Balance 1270 ml Intake Oral 1270 ml # Voids 8 Medications Current Medications Medications Dose Ordered Sig/Carlos Route Start Time Stop Time Status Last Admin Dose Admin Acetaminophen/ Hydrocodone Bitart 1 tab Q4HP PRN PO 03/12/25 16:30 03/14/25 10:37 1 TAB Ondansetron HCl 4 mg Q4HP PRN IV 03/12/25 16:30 03/13/25 10:56 4 MG Acetaminophen 650 mg Q6HP PRN PO 03/12/25 16:30 Morphine Sulfate 2 mg Q4HPRN PRN IV 03/12/25 16:30 Ascorbic Acid 500 mg DAILY PO 03/13/25 10:00 03/15/25 07:51 500 MG Aspirin 81 mg DAILY PO 03/13/25 10:00 03/15/25 07:51 81 MG Ergocalciferol 50,000 unit Q7D PO 03/12/25 17:15 03/13/25 02:22 50,000 UNIT Levetiracetam 500 mg BID PO 03/12/25 22:00 03/15/25 07:52 500 MG Atorvastatin Calcium 10 mg DAILY PO 03/13/25 10:00 03/15/25 07:52 10 MG Lisinopril 2.5 mg DAILY PO 03/13/25 10:00 03/14/25 10:33 2.5 MG Pantoprazole Sodium 40 mg DAILY PO 03/13/25 10:00 03/15/25 07:52 40 MG Diphenhydramine HCl 25 mg Q8HP PO 03/14/25 14:00 03/15/25 05:38 25 MG Alprazolam 1 mg TID PO 03/15/25 14:00 UNV Laboratory Results Laboratory Tests 03/13/25 05:16 Urinalysis Test 03/12/25 13:07 Urine Color Light-orange (Yellow) Urine Clarity Turbid (Clear) H Urine pH 5.5 (5.0-9.0) Urine Specific [place] 1.036 (1.001-1.035) Urine Protein 1+ (Negative) H Urine Ketones 1+ (Negative) H Urine Blood Negative /uL (Negative) Urine Nitrite Negative (Negative) Urine Bilirubin Negative (Negative) Urine Urobilinogen 2 mg/dL (Negative) H Urine Leukocyte Esterase Negative /uL (Negative) Urine RBC 3 /hpf (0 - 4) Urine Microscopic WBC 4 /HPF (0-5) Urine Squamous Epithelial Cells Mod /hpf (<5) Urine Bacteria Many /hpf (None Seen) H Urine Mucus Few (None Seen) Urine Glucose Normal mg/dL (Normal) Labs and/or images reviewed: Labs reviewed by me, Image(s) reviewed by me Assessment/Plan Assessment/Plan Intractable back pain status post mechanical fall Hypernatremia Hypokalemia Superior endplate compression with 50% central height loss of T12. Minimal superior endplate height loss of L2 and L3. 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 [phone] Patient will be discharged to [facility] facility for pain management and physical therapy in view of recurrent falls and the plan is acceptable to the capacity planner and the patient Plan discussed with: Patient My Orders Orders - TALIB GUARDADO MD Procedure Category Date Status Time Pt Request For Service PT 03/15/25 Logged 09:44 Alprazolam Tablet PHA 03/15/25 Logged (Xanax Tablet) 10:30 Alprazolam Tablet PHA 03/15/25 Logged (Xanax Tablet) 14:00 Date of Service: March 15, 2025 Billing Provider: TALIB GUARDADO MD Common Visit Codes: [id number] INP/OBS CARE(HIGH) TALIB GUARDADO MD March 15, 2025 10:25
[2025-03-15] MEDS: ALPRAZolam 0.5 MG TAB PO ONE (10:34)
[2025-03-15] MEDS: ALPRAZolam 0.5 MG TAB PO SCH (14:00)
[2025-03-15] MEDS: LACTULOSE 20Gm/30ML SOLN PO ONE (14:09)
[2025-03-15 23:30] LABS: COVID19 ANTIGEN SOFIA FIA NEGATIVE (NEGATIVE)
[2025-03-16 01:00] VITALS: BP 132/76; PULSE 65; RESP 16; TEMP 97.5; O2SAT 94
[2025-03-16 05:00] VITALS: BP 139/74; PULSE 65; RESP 16; TEMP 98.1; O2SAT 95
[2025-03-16 07:18] LABS: Anion Gap 7 (5-15); Chloride 106 mmol/L (98-107)
[2025-03-16 07:19] LABS: Calcium 9.5 mg/dL (8.7-10.4)
[2025-03-16 07:24] LABS: BUN/Creatinine Ratio 22.5 (10.0-20.0); Blood Urea Nitrogen 16 mg/dL (9-23); Glucose 91 mg/dL (74-106)
[2025-03-16 07:25] LABS: Carbon Dioxide 32 mmol/L (20-31); Potassium 3.3 mmol/L (3.5-5.1); Sodium 145 mmol/L (136-145)
[2025-03-16 08:00] VITALS: PULSE 59
[2025-03-16 09:09] VITALS: BP 146/93; PULSE 98; RESP 16; TEMP 97.9; O2SAT 97
--- NOTE | 2025-03-16 10:06 | DVHPN2 ---
Reviewed: Care Plan, H&P, Labs, Medications, Previous Orders, Radiology Changes from previous H/P or p: No Changes Musculoskeletal: back pain Objective Vitals Vital Signs Date Time Temp Pulse Resp B/P (MAP) Pulse Ox O2 Delivery O2 Flow Rate FiO2 03/16/25 09:09 97.9 98 16 146/93 (110) 97 97.9 03/15/25 20:00 Room Air* 0 21 Intake/Output Intake and Output 03/16/25 07:00 Intake Total 1020 ml Balance 1020 ml Intake Oral 1020 ml # Voids 9 # Bowel Movements 4 Medications Current Medications Medications Dose Ordered Sig/Carlos Route Start Time Stop Time Status Last Admin Dose Admin Acetaminophen/ Hydrocodone Bitart 1 tab Q4HP PRN PO 03/12/25 16:30 03/15/25 21:37 1 TAB Ondansetron HCl 4 mg Q4HP PRN IV 03/12/25 16:30 03/13/25 10:56 4 MG Acetaminophen 650 mg Q6HP PRN PO 03/12/25 16:30 Morphine Sulfate 2 mg Q4HPRN PRN IV 03/12/25 16:30 Ascorbic Acid 500 mg DAILY PO 03/13/25 10:00 03/16/25 08:44 500 MG Aspirin 81 mg DAILY PO 03/13/25 10:00 03/16/25 08:43 81 MG Ergocalciferol 50,000 unit Q7D PO 03/12/25 17:15 03/13/25 02:22 50,000 UNIT Levetiracetam 500 mg BID PO 03/12/25 22:00 03/16/25 08:44 500 MG Atorvastatin Calcium 10 mg DAILY PO 03/13/25 10:00 03/16/25 08:44 10 MG Lisinopril 2.5 mg DAILY PO 03/13/25 10:00 03/16/25 08:46 2.5 MG Pantoprazole Sodium 40 mg DAILY PO 03/13/25 10:00 03/16/25 08:43 40 MG Diphenhydramine HCl 25 mg Q8HP PO 03/14/25 14:00 03/16/25 05:10 25 MG Alprazolam 1 mg TID PO 03/15/25 14:00 Laboratory Results Laboratory Tests 03/13/25 05:16 03/16/25 06:07 Chemistry Test 03/16/25 06:07 Calcium Level 9.5 mg/dL (8.7-10.4) Urinalysis Test 03/12/25 13:07 Urine Color Light-orange (Yellow) Urine Clarity Turbid (Clear) H Urine pH 5.5 (5.0-9.0) Urine Specific [place] 1.036 (1.001-1.035) Urine Protein 1+ (Negative) H Urine Ketones 1+ (Negative) H Urine Blood Negative /uL (Negative) Urine Nitrite Negative (Negative) Urine Bilirubin Negative (Negative) Urine Urobilinogen 2 mg/dL (Negative) H Urine Leukocyte Esterase Negative /uL (Negative) Urine RBC 3 /hpf (0 - 4) Urine Microscopic WBC 4 /HPF (0-5) Urine Squamous Epithelial Cells Mod /hpf (<5) Urine Bacteria Many /hpf (None Seen) H Urine Mucus Few (None Seen) Urine Glucose Normal mg/dL (Normal) Labs and/or images reviewed: Labs reviewed by me, Image(s) reviewed by me Assessment/Plan Assessment/Plan Intractable back pain status post mechanical fall Hypernatremia Hypokalemia Superior endplate compression with 50% central height loss of T12. Minimal superior endplate height loss of L2 and L3. 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 [phone] Physical therapist recommended group home facility placement for rehab Patient will be discharged to group home facility for pain management and physical therapy in view of recurrent falls and the plan is acceptable to the executive housekeeper and the patient Plan discussed with: Patient My Orders Orders - TALIB GUARDADO MD Procedure Category Date Status Time Alprazolam Tablet PHA 03/15/25 In Process (Xanax Tablet) 14:00 Communication Order ORDERS 03/15/25 Transmitted 10:26 Date of Service: March 16, 2025 Billing Provider: TALIB GUARDADO MD Common Visit Codes: [id number] INP/OBS CARE(HIGH) TALIB GUARDADO MD March 16, 2025 10:06
--- NOTE | 2025-03-16 10:16 | DVHDS2 ---
Discharge Summary Date of Admission March 12, 2025 at 16:20 Date of Discharge: March 16, 2025 Admitting Diagnosis Worsening of the chronic back pain and recurrent falls Wounds: None Labs/Diagnostic Data: Laboratory Results Test 03/16/25 06:07 03/15/25 22:15 03/13/25 05:16 03/12/25 13:07 Sodium Level 145 mmol/L (136-145) Potassium Level 3.3 mmol/L (3.5-5.1) Chloride Level 106 mmol/L (98-107) Carbon Dioxide Level 32 mmol/L (20-31) Anion Gap 7 (5-15) Blood Urea Nitrogen 16 mg/dL (9-23) Creatinine 0.71 mg/dL (0.550-1.02) Glomerular Filtration Rate Calc 88 mL/min (>90) BUN/Creatinine Ratio 22.5 (10.0-20.0) Serum Glucose 91 mg/dL (74-106) Calcium Level 9.5 mg/dL (8.7-10.4) SARS-CoV-2 Antigen (Rapid) Negative (NEGATIVE) White Blood Count 4.8 10^3/uL (4.4-10.8) Red Blood Count 3.71 10^6/uL (4.0-5.20) Hemoglobin 12.6 g/dL (12.2-16.2) Hematocrit 36.6 % (36.0-46.0) Mean Corpuscular Volume 98.5 fL (80.0-100.0) Mean Corpuscular Hemoglobin 34.0 pg (28.0-32.0) Mean Corpuscular Hemoglobin Concent 34.5 g/dL (32.0-36.0) Red Cell Distribution Width 13.6 % (11.8-14.3) Platelet Count 187 10^3/uL (140-450) Mean Platelet Volume 8.3 fL (6.9-10.8) Neutrophils (%) (Auto) 58.1 % (37.0-80.0) Lymphocytes (%) (Auto) 24.0 % (10.0-50.0) Monocytes (%) (Auto) 8.9 % (0.0-12.0) Eosinophils (%) (Auto) 8.4 % (0.0-7.0) Basophils (%) (Auto) 0.6 % (0.0-2.0) Neutrophils # (Auto) 2.8 10 ^3/uL (1.6-8.6) Lymphocytes # (Auto) 1.1 10 ^3/uL (0.4-5.4) Monocytes # (Auto) 0.4 10 ^3/uL (0-1.3) Eosinophils # (Auto) 0.4 10 ^3/uL (0-0.8) Basophils # (Auto) 0 10 ^3/uL (0-0.2) Nucleated Red Blood Cells 0.1 % Total Bilirubin 0.8 mg/dL (0.2-1.0) Aspartate Amino Transferase (AST) 15 U/L (13-40) Alanine Aminotransferase (ALT) 10 U/L (7-40) Alkaline Phosphatase 65 U/L (46-116) Total Protein 5.9 g/dL (5.7-8.2) Albumin 3.7 g/dL (3.2-4.8) Urine Color Light-orange (Yellow) Urine Clarity Turbid (Clear) Urine pH 5.5 (5.0-9.0) Urine Specific [place] 1.036 (1.001-1.035) Urine Protein 1+ (Negative) Urine Ketones 1+ (Negative) Urine Blood Negative /uL (Negative) Urine Nitrite Negative (Negative) Urine Bilirubin Negative (Negative) Urine Urobilinogen 2 mg/dL (Negative) Urine Leukocyte Esterase Negative /uL (Negative) Urine RBC 3 /hpf (0 - 4) Urine Microscopic WBC 4 /HPF (0-5) Urine Squamous Epithelial Cells Mod /hpf (<5) Urine Bacteria Many /hpf (None Seen) Urine Mucus Few (None Seen) Urine Glucose Normal mg/dL (Normal) Test 03/12/25 12:44 03/12/25 11:23 Troponin I High Sensitivity 4 ng/L (</=34) Plasma/Serum Blood Alcohol < 3.0 mg/dL (<10) POC Glucose 112 mg/dl (70-106) Other Laboratory Tests 03/16/25 06:07 03/13/25 05:16 Brief Hx & Hospital Course: 74-year-old female living in [facility] and 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 Patient has had mechanical fall patient has a recurrent falls. CT LS spine showed compression fracture T12 with 50 percent loss of height and minimal height loss of L2 and L3. Patient has a higher level of anxiety. Patient also with the current chronic smoker and history of alcohol abuse and seizures and CVA patient received physical therapy recommended group home facility for rehab. Discharged to group home facility for physical therapy for acute on chronic back pain and failure to thrive. The plan is acceptable to the patient and dry house worker Ezio [phone] Consults/Reason for consult None Operations or Procedures CT LS spine Condition at Discharge: Fair Final Diagnosis/Problems List Intractable back pain status post mechanical fall Hypernatremia Hypokalemia Superior endplate compression with 50% central height loss of T12. Minimal superior endplate height loss of L2 and L3. Multilevel degenerative change of the lumbar spine: Recurrent falls Hypertension Hypercholesterolemia Chronic current smoker counseling Alcohol abuse Anxiety Seizures History of CVA Severe Anxiety: Xanax 1 mg p.o.tid History of pelvic fracture History of left hip surgery 2019 Discharge Disposition: [facility] Discharge Instruct/Medications Diet: Regular Activity: Light activity Follow Up/Referral: Follow up with the senior living doctor Medications: see list 39 (Time taken for discharge summary 39 minutes) Discharge Statement: "Patient was advised to return to the ER or call 911 if any headaches, dizziness, shortness of breath, chest pain, abdominal pain, bleeding, fevers, or worsening of medical condition. Patient was counseled about treatment plan, medications, possible side effects, patient�verbalized understanding. All questions were answered to the best of my ability. This discharge took greater then 30 minutes in planning, reviewing documentation, counseling the patient, and discussing with other team members." ASSESSMENT ASSESSMENT Hospital Course Improved marginally Assessment Intractable back pain status post mechanical fall Hypernatremia Hypokalemia Superior endplate compression with 50% central height loss of T12. Minimal superior endplate height loss of L2 and L3. Multilevel degenerative change of the lumbar spine: Recurrent falls Hypertension Hypercholesterolemia Chronic current smoker counseling Alcohol abuse Anxiety Seizures History of CVA Severe Anxiety: Xanax 1 mg p.o.tid History of pelvic fracture History of left hip surgery 2018 Date of Service: March 16, 2025 Billing Provider: TALIB GUARDADO MD Common Visit Codes: 89603-CGG/OBS DISCH DAY >30min TALIB GUARDADO MD March 16, 2025 10:16
[2025-03-16 13:41] VITALS: BP 146/78; PULSE 76; RESP 16; TEMP 98; O2SAT 94
[2025-03-16 16:58] VITALS: BP 126/81; PULSE 75; RESP 17; TEMP 97.6; O2SAT 93
== END 2025-03-16 17:21 | DRG 552 ==
LOC: ER 10:35 → OVERFLOW 16:20 → CENTRAL 18:04 → EAST 20:02 → TELE-EAST 21:06
PROVIDERS: ADMIT Family Medicine; ATTEND Family Medicine
DX: M47.816 Spondylosis without myelopathy or radiculopathy, lumbar region (principal); S22.089A Unspecified fracture of T11-T12 vertebra, initial encounter for closed fracture; S32.039A Unspecified fracture of third lumbar vertebra, initial encounter for closed fracture; E87.0 Hyperosmolality and hypernatremia; G40.89 Other seizures; E78.00 Pure hypercholesterolemia, unspecified; E87.6 Hypokalemia; I10 Essential (primary) hypertension; F41.9 Anxiety disorder, unspecified; Z20.822 Contact with and (suspected) exposure to COVID-19; F10.10 Alcohol abuse, uncomplicated; R29.6 Repeated falls; Y90.9 Presence of alcohol in blood, level not specified; F17.210 Nicotine dependence, cigarettes, uncomplicated; M54.9 Dorsalgia, unspecified; G89.29 Other chronic pain; R62.7 Adult failure to thrive; Z88.5 Allergy status to narcotic agent; Z79.1 Long term (current) use of non-steroidal anti-inflammatories (NSAID); Z79.899 Other long term (current) drug therapy; Z79.82 Long term (current) use of aspirin; Z79.891 Long term (current) use of opiate analgesic; Z86.73 Personal history of transient ischemic attack (TIA), and cerebral infarction without residual deficits; Z71.6 Tobacco abuse counseling
CPT/HCPCS: 36415; 70450; 71045; 72100; 72148; 80048; 80053; 80320; 81001; 82962; 84132; 84484; 85025; 87426; 93005; 97163; 99291; G0378; J2405

== ENCOUNTER 2025-05-08 17:44 | Emergency (ER) | payer MEDICAID, MEDICARE ==
[~2025-05-08] VITALS: Ht 172.7 cm; Wt 50.9 kg
[~2025-05-08 17:44] MED LIST changes: +OMEP10CA5
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
--- NOTE | 2025-05-08 19:32 | DVH ---
EXAM: XY LUMBAR SPINE 3 VIEW INDICATION: fall TECHNIQUE: 3 views of the lumbar spine COMPARISON: XY LUMBAR SPINE 3 VIEW on DOS: 03/12/25 FINDINGS/IMPRESSION: 20 percent superior endplate height loss of T11 and T12 with minimal 2-3 mm retropulsion. Trace anter olisthesis L4 over L5. Vascular calcifications.
--- NOTE | 2025-05-08 19:33 | DVH ---
EXAM: XY R HIP COMPLETE XRAY INDICATION: fall TECHNIQUE: 3 views of the right hip COMPARISON: XY R HIP COMPLETE XRAY on DOS: 10/09/24 FINDINGS/IMPRESSION: No radiographic evidence of an acute osseous abnormality. There is no acute fracture, osseous malalig nment, or aggressive focal osseous lesion. Right cephalomedullary nail fixation. [id number] de generative change of the right hip. Mild degenerative change of bilateral sacroiliac joints. Likely prior nondisplaced fracture of the right inferior pubic ramus. Suspected prior healed fracture of the right superior acetabulum.
--- NOTE | 2025-05-08 19:33 | DVH ---
EXAM: XY R FEMUR XRAY INDICATION: fall TECHNIQUE: 2 views of the right femur COMPARISON: None FINDINGS/IMPRESSION: Right cephalomedullary nail fixation with long femoral geronimo. No osseous lucency along the hardware bon e interfaces. No perihardware fracture. Contour irregularity of the right femoral neck likely sequela e of prior fracture. No knee joint effusion.
[2025-05-08] MEDS ORDERED: IBU600T PO (19:49)
[2025-05-08 20:06] VITALS: BP 147/94; PULSE 89; RESP 18; TEMP 97.6; O2SAT 94
[2025-05-08] MEDS ORDERED: HYDR-4902 PO (20:07)
[2025-05-09] MEDS ORDERED: HYDR-4902 PO (14:52)
[2025-05-09] MEDS ORDERED: HYDR-4798 PO (16:05)
== END 2025-05-08 20:16 | disposition home or self-care (01) ==
LOC: ER 17:47
DX: G89.29 Other chronic pain (principal); M17.11 Unilateral primary osteoarthritis, right knee; F41.9 Anxiety disorder, unspecified; E78.5 Hyperlipidemia, unspecified; I10 Essential (primary) hypertension; Z88.6 Allergy status to analgesic agent; Z86.73 Personal history of transient ischemic attack (TIA), and cerebral infarction without residual deficits; Z79.899 Other long term (current) drug therapy; Z88.5 Allergy status to narcotic agent; W19.XXXA Unspecified fall, initial encounter; Y93.89 Activity, other specified; Y92.89 Other specified places as the place of occurrence of the external cause; Y99.8 Other external cause status
CPT/HCPCS: 72100; 73502

== ENCOUNTER 2025-05-09 12:26 | Emergency (ER) | payer MEDICARE, MEDICAID ==
[~2025-05-09] VITALS: Ht 172.7 cm; Wt 50.9 kg
[~2025-05-09 12:26] MED LIST changes: +HYDR-4902 PO; +IBU600T PO
--- NOTE | 2025-05-09 12:49 | ED.PDOC ---
History of Present Illness HPI Comments 74-year-old female presents to the ER with prior medical history of anxiety, chronic right hip pain, high lipids, hypertension, seizures and the chief complaint of back pain. Patient reports the she was here yesterday for falling several times and was sent home but was prescribed medication. The pharmacy t hat the pain meds were sent to were closed yesterday and today and the patient currently has 10/10 pain on the right side of her back and legs. Denies chills, fever, N/V/D, SOB, CP. No other associated symptoms, modifiers, recent injuries or sick contacts present at this time. Time Seen by MD: 12:35 Primary Care Provider: UNKNOWN Reviewed Notes: Nurses Notes, Medications, Allergies Allergies: Coded Allergies: Morphine (Verified Allergy, Unknown, 03/12/25) Naproxen (Verified Allergy, Unknown, 04/19/24) Home Meds Active Scripts Hydrocodone-Acetaminophen (Hydrocodone Bitartrate/AC 5-325 mg) 1 Tab Tab, 1 TAB PO BS for 5 Days, #5 TAB Prov:JUAN BUSTAMANTE MD 05/09/25 Hydrocodone-Acetaminophen (Hydrocodone Bitartrate/AC 5-325 mg) 1 Tab Tab, 1 TAB PO Q12HP PRN for 3 Days, #6 TAB Prov:PEGGY LOO MD 05/08/25 Ibuprofen Micronized (MOTRIN TABLET) 600 Mg Tb, 600 MG PO TID PRN, #40 TAB *Black box warning-NSAIDS can increase risk of RI & hypertension, GI irritation, ulceration, bleed, perferation. Do not use post cardiac surgery. Use short duration/lowest effective dose. Prov:PEGGY LOO MD 05/08/25 Levetiracetam (Keppra) 500 Mg Tab, 1 TAB PO BID for 30 Days, #60 TAB 3 Refills Prov:ADOLPH CHAN 10/10/24 Ergocalciferol (VITAMIN D 92316 UNIT) 50,000 [place], [address] UNIT PO Q7D for 30 Days, #10 CAP Prov:ADOLPH CHAN 10/10/24 Acetaminophen (Acetaminophen) 325 Mg Tab, 650 MG PO Q6HP PRN for 10 Days, #80 TAB Prov:ADOLPH CHAN 10/10/24 Reported Medications Omeprazole (Omeprazole Dr) 10 Mg Cap 03/12/25 Lorazepam (Ativan) 2 Mg Tab, 1 TAB PO QPM for ANXIETY, #30 TAB 04/18/24 Nitroglycerin (NTROSTAT SUBLINGUAL) 0.4 Mg Sl, 0.4 MG SL PRN, TAB *MAY REPEAT EVERY 5 MINUTES X 3 TOTAL IF NO RELIEF, INITIATE ANALGESIC THERAPY. NOTIFY PHYSICIAN *Do not crush. 04/18/24 Ascorbic Acid (VITAMIN C TABLET) 500 Mg Tb, 1 TAB PO DAILY for SUPPLEMENT, #30 TAB 3 Refills 04/18/24 Aspirin (ASPIRIN 81) 81 Mg Tab, 81 MG OR, TAB 04/18/24 Senna (Senokot) 8.6 Mg Tab, 1 TAB PO BID for CONSTIPATION, #40 TAB 04/18/24 Atorvastatin Calcium (ATORVASTATIN CALCIUM) 10 Mg Tab, 1 TAB PO DAILY, #30 TAB 5 Refills 04/18/24 Lisinopril (Lisinopril) 2.5 Mg Tab, 1 TAB PO DAILY for HTN, #30 TAB 5 Refills 04/18/24 Omeprazole (Gnp Omeprazole) 20 Mg Tab, 1 TAB PO DAILY, #90 TAB 1 Refill 04/18/24 Hydrocodone-Acetaminophen (Hydrocodone Bitartrate/AC 10-325 mg) 1 Tab Tab, 1 TAB PO for PAIN, TAB 04/18/24 Diphenhydramine Hcl (Banophen) 25 Mg Cap, 25 MG PO BID for ITCHING, CAP 04/18/24 Information Source: Patient Mode of Arrival: Ambulatory Severity: Moderate Timing: Hours Duration: Since onset, Hours Prehospital treatment: None Past Medical History PAST MEDICAL HISTORY: Anxiety, High Lipids, HTN, Seizures Past Medical History (Other): Chronic right hip pain Surgical History: Denies all surgeries 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: 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 Family History Family History: Reviewed,noncontributory to illness, Unknown Social History Smoker: Non-Smoker Alcohol: Denies ETOH Use Drugs: Denies Drug Use Lives In: Home Constitutional: denies: chills, diaphoresis, fatigue, fever, malaise, sweats, weakness, others EENTM: denies: blurred vision, double vision, ear bleeding, ear discharge, ear drainage, ear pain, ear ringing, eye pain, eye redness, hearing loss, mouth pain, mouth swelling, nasal discharge, nose bleeding, nose congestion, nose pain, photophobia, tearing, throat pain, throat swelling, voice changes, others Respiratory: denies: cough, hemoptysis, orthopnea, SOB at rest, shortness of breath, SOB with excertion, stridor, wheezing, others Cardiovascular: denies: chest pain, dizzy spells, diaphoresis, Dyspnea on exertion, edema, irregular heart beat, left arm pain, lightheadedness, palpitations, PND, syncope, others Gastrointestinal: denies: abdomen distended, abdominal pain, blood streaked bowels, constipated, diarrhea, dysphagia, difficulty swallowing, hematemesis, melena, nausea, poor appetite, poor fluid intake, rectal bleeding, rectal pain, vomiting, others Genitourinary: denies: abnormal vagina bleeding, burning, dyspareunia, dysuria, flank pain, frequency, hematuria, incontinence, pain, , vagina discharge, urgency, others Neurological: denies: dizziness, fainting, headache, left sided numbness, left sided weakness, numbness, paresthesia, pre-existing deficit, right sided numbness, right sided weakness, seizure, speech problems, tingling, tremors, weakness, others Musculoskeletal: reports: back pain; denies: gout, joint pain, joint swelling, muscle pain, muscle stiffness, neck pain, others Integumetry: denies: bruises, change in color, change in hair/nails, dryness, laceration, lesions, lumps, rash, wounds, others Allergic/Immunocompromised: denies: Difficulty Healing, Frequent Infections, Hives, Itching, others Hematologic/Lymphatic: denies: anemia, blood clots, easy bleeding, easy bruising, swollen glands, others Endocrine: denies: excessive hunger, excessive sweating, excessive thirst, excessive urination, flushing, intolerance to cold, intolerance to heat, unexplained weight gain, unexplained weight loss, others Psychiatric: denies: anxiety, bipolar disorder, depression, hopeless, panic disorder, schizophrenia, sleepless, suicidal, others All Other Systems: Reviewed and Negative Physical Exam General Appearance: Moderate Distress, Thin HEENT: Normal ENT Inspection, Pharynx Normal, TMs Normal Neck: Full Range of Motion, Non-Tender, Normal, Normal Inspection Respiratory: Chest Non-Tender, Lungs Clear, No Accessory Muscle Use, No R espiratory Distress, Normal Breath Sounds Cardiovascular: No Edema, No JVD, No Murmur, No Gallop, Normal Peripheral Pulses, Regular Rate/Rhythm Breast Exam: Deferred Gastrointestinal: No Organomegaly, Non Tender, No Pulsatile Mass, Normal Bowel Sounds, Soft Genitalia: Deferred Pelvic: Deferred Rectal: Deferred Extremities: No calf tenderness, Normal capillary refill, Normal inspection, Normal range of motion, Non-tender, No pedal edema Musculoskeletal : Apperance: Normal Neurologic: Alert, bulldozer operator II-XII nml as Tested, No Motor Deficits, Normal Affect, Normal Mood, No Sensory Deficits Cerebellar Function: NOT DONE Reflexes: NOT DONE Skin: Dry, Normal Color, Warm Peripheral Pulses: 3+ Radial (R), 3+ Radial (L) Lymphatic: No Adenopathy Was a procedure done? Was a procedure done?: No Differential Dx Considerations may include: Chronic pain syndrome X-Ray, Labs, Meds, VS Vital Signs Date Time Temp Pulse Resp B/P (MAP) Pulse Ox O2 Delivery O2 Flow Rate FiO2 05/09/25 13:43 86 18 95 Room Air* 0 21 05/09/25 13:25 88 16 97 05/09/25 13:25 98.7 88 16 143/53 (83) 97 98.7 05/09/25 12:36 98.2 86 18 123/57 (79) 95 98.2 Current Medications Medications (Trade) Dose Ordered Sig/Carlos Route Start Time Stop Time Status Last Admin Acetaminophen/ Hydrocodone Bitart ([place] 10/325MG Tab) 1 tab ONCE ONCE PO 05/09/25 12:45 05/09/25 12:46 DC 05/09/25 13:48 Patient alert. Vitals stable. Has been falling frequently. Answering questions. She did not get her pain medication. Was given [place]. Reviewed her previous visit. No new injury. Denies any fall since yesterday. She will need physiotherapy. X-ray of the lumbar hip femur has been done yesterday. Explained to the patient. Continue monitoring. Was told to follow up with her primary care physician. Was told to come back if there is any problem. Time of 1ST Reevaluation: 13:05 Reevaluation 1ST: Unchanged Patient Education/Counseling: Diagnosis, Treatment, Prognosis Family Education/Counseling: No Family Present SEPSIS Sepsis Screen Vital Signs Date Time Temp Pulse Resp B/P (MAP) Pulse Ox O2 Delivery O2 Flow Rate FiO2 05/09/25 13:43 86 18 95 Room Air* 0 21 05/09/25 13:25 88 16 97 05/09/25 13:25 98.7 88 16 143/53 (83) 97 98.7 05/09/25 12:36 98.2 86 18 123/57 (79) 95 98.2 Medications Medications Dose Ordered Sig/Carlos Route Start Time Stop Time Status Last Admin Dose Admin Acetaminophen/ Hydrocodone Bitart 1 tab ONCE ONCE PO 05/09/25 12:45 05/09/25 12:46 DC 05/09/25 13:48 Departure 1 Departure Time of Disposition: 12:53 Impression: Primary Impression: Degenerative disc disease Qualified Codes: M51.369 - Other intervertebral disc degeneration, lumbar region without mention of lumbar back pain or lower extremity pain Additional Impression: Musculoskeletal pain Disposition: 01 HOME / SELF CARE / HOMELESS Condition: Good e-Prescriptions Hydrocodone-Acetaminophen (Hydrocodone Bitartrate/AC 5-325 mg) 1 Tab Tab 1 TAB PO BS for 5 Days, #5 TAB Prov: JUAN BUSTAMANTE MD 05/09/25 Discharged With: Self Critical Care Note Critical Care Time?: No Stability Stability form required: No Heart Score Heart Score: Heart Score Response (Comments) Value History N/A 0 EKG N/A 0 Age N/A 0 Risk Factors N/A 0 Troponin N/A 0 Total 0 I personally scribed for JUAN BUSTAMANTE MD ([email or web address]) on 05/09/25 at 12:49. Electronically submitted by John Polanco ([email or web address]). JUAN BUSTAMANTE MD May 09, 2025 12:49
[2025-05-09 13:43] VITALS: PULSE 86; RESP 18; O2SAT 95
[2025-05-09] MEDS: HYDROcodone-ACET 10/325MG TAB PO ONE (13:48)
[2025-05-09] MEDS ORDERED: HYDR-4902 PO (14:52)
[2025-05-09 15:01] VITALS: BP 148/97; PULSE 92; RESP 16; TEMP 98.7; O2SAT 95
[2025-05-09] MEDS ORDERED: HYDR-4798 PO (16:05)
== END 2025-05-09 15:00 | disposition home or self-care (01) ==
LOC: ER 12:26
DX: M51.369 Other intervertebral disc degeneration, lumbar region without mention of lumbar back pain or lower extremity pain (principal); E78.5 Hyperlipidemia, unspecified; I10 Essential (primary) hypertension; F41.9 Anxiety disorder, unspecified; Z79.899 Other long term (current) drug therapy; Z88.5 Allergy status to narcotic agent; Z88.6 Allergy status to analgesic agent